=== PATIENT | female | born 1955 | race Caucasian/White ===

== ENCOUNTER 2016-05-29 15:08 | Emergency (ER) | payer BC ==
[~2016-05-29] VITALS: Ht 165.1 cm; Wt 73.9 kg
[2016-05-29] MEDS ORDERED: IPRATRPIUM/ALBUTEROL 0.5/2.5MG 3 ML NEBU. NEB ONE (15:45)
[2016-05-29] MEDS ORDERED: methylPREDNISolone SOD SUCC PF 125 MG/2 ML VIAL. IV ONE (15:45)
[2016-05-29] MEDS ORDERED: IV NORMAL SALINE 1000ML BAG 1,000 ML IV ONE (15:45)
--- NOTE | 2016-05-29 15:56 | EKG ---
[facility] [address] [place] [address] Test Date: 2016-05-29 Test Time: 15:50:39 Pat Name: LUANNE SUÁREZ Department: Room: Gender: F [employer]: : [id number] Requested By: AGATHA COON Order Number: [id number] Reading MD: Lena Bautista Measurements Intervals [place] Rate: 73 P: 47 TX: 178 QRS: 13 QRSD: 148 T: 78 QT: 438 QTc: 487 Interpretive Statements SINUS RHYTHM NON SPECIFIC INTRAVENTRICULAR BLOCK RI6.01 Unconfirmed report No previous ECG available for comparison Electronically Signed On 05-31-2016 10:58:52 CDT by Lena Bautista
[2016-05-29 15:59] LABS: BASO # 0.1 x10^3/uL (0.0-0.2); BASO % 1 % (0-3); EOS % 1 % (0-3); HEMATOCRIT 44.7 % (36.0-47.0); HEMOGLOBIN 15.1 g/dL (12.0-15.5); LYMPH # 1.5 x10^3/uL (1.0-4.8); LYMPH % 22 % (24-48); MEAN CORPUSCULAR HEMOGLOBIN 32 pg (25-35); MEAN CORPUSCULAR HGB CONC 34 g/dL (31-37); MEAN CORPUSCULAR VOLUME 95 fL (79-100); MONO % 9 % (0-9); NEUT % 68 % (31-73); PLATELET COUNT 316 x10^3/uL (140-400); RED CELL DISTRIBUTION WIDTH 12.9 % (11.5-14.5); WHITE BLOOD COUNT 6.8 x10^3/uL (4.0-11.0)
[2016-05-29 16:17] LABS: CALCIUM 9.2 mg/dL (8.5-10.1); CREATININE 0.6 mg/dL (0.6-1.0); GFR 102.3; POTASSIUM 3.1 mmol/L (3.5-5.1)
[2016-05-29 16:23] LABS: ALBUMIN 3.4 g/dL (3.4-5.0); ALBUMIN/GLOBULIN RATIO 1.1 (1.0-1.7); TOTAL PROTEIN 6.6 g/dL (6.4-8.2)
--- NOTE | 2016-05-29 16:35 | RAD ---
Chest, 2 views, 05/29/2016: History: Shortness of breath The heart size and pulmonary vascularity are normal. No pulmonary infiltrates are seen. There is no evidence of pleural fluid. IMPRESSION: No acute cardiopulmonary abnormality is detected.
[2016-05-29] MEDS ORDERED: GUAI120L35 PO (17:03)
[2016-05-29] MEDS ORDERED: PRED20TA PO (17:03)
[2016-05-29] MEDS ORDERED: PROVENTIL HFA6.7 GM IH (17:03)
--- NOTE | 2016-05-29 17:03 | PHYS DOC ---
Past Medical History Past Medical History: Hypertension, Pneumonia Additional Past Medical Histor: "some kind of heart issue" Past Surgical History: Other Additional Past Surgical Histo: hand Alcohol Use: Occasionally Drug Use: None Adult General Chief Complaint Chief Complaint: SHORTNESS OF BREATH HPI HPI 60-year-old female presents with a 2-3 week history of increased cough and congestion. She was seen at an urgent care and told that she probably had walking pneumonia and was started on antibiotics. Patient states she's really not gotten a lot better. She denies any high fever chills or sweats. Her cough is been nonproductive. She does have some sharp pain in her chest when she coughs. She denies any hemoptysis. She does continue to smoke. [] Review of Systems Review of Systems Constitutional: Denies fever or chills [] Eyes: Denies change in visual acuity, redness, or eye pain [] HENT: Denies nasal congestion or sore throat [] Respiratory: Per history of present illness [] Cardiovascular: No additional information not addressed in HPI [] GI: Denies abdominal pain, nausea, vomiting, bloody stools or diarrhea [] : Denies dysuria or hematuria [] Musculoskeletal: Denies back pain or joint pain [] Integument: Denies rash or skin lesions [] Neurologic: Denies headache, focal weakness or sensory changes [] Endocrine: Denies polyuria or polydipsia [] Current Medications Current Medications Current Medications Medications (Trade) Dose Ordered Sig/Gumaro Start Time Stop Time Status Last Admin Dose Admin Albuterol/ Ipratropium (Duoneb) 6 ml 1X ONCE 05/29/16 15:45 05/29/16 15:46 DC 05/29/16 15:54 6 ML Methylprednisolone Sodium Succinate 125 mg 125 mg 1X ONCE 05/29/16 15:45 05/29/16 15:46 DC 05/29/16 15:48 125 MG Sodium Chloride (Iv Sodium Chloride 0.9% 1000ml Bag) 1,000 ml @ 1,000 mls/hr 1X ONCE 05/29/16 15:45 05/29/16 16:44 DC 05/29/16 15:48 1,000 MLS/HR Allergies Allergies Allergies Coded Allergies Type Severity Reaction Last Updated Verified morphine Allergy Unknown 05/29/16 Yes Physical Exam Physical Exam Constitutional: Well developed, well nourished, no acute distress, non-toxic appearance. [] HENT: Normocephalic, atraumatic, bilateral external ears normal, oropharynx moist, no oral exudates, nose normal. [] Eyes: PERRLA, EOMI, conjunctiva normal, no discharge. [] Neck: Normal range of motion, no tenderness, supple, no stridor. [] Cardiovascular:Heart rate regular rhythm, no murmur [] Lungs & Thorax: Wheezes throughout both lungs no rales [] Abdomen: Bowel sounds normal, soft, no tenderness, no masses, no pulsatile masses. [] Skin: Warm, dry, no erythema, no rash. [] Back: No tenderness, no CVA tenderness. [] Extremities: No tenderness, no cyanosis, no clubbing, ROM intact, no edema. [] Neurologic: Alert and oriented X 3, normal motor function, normal sensory function, no focal deficits noted. [] Psychologic: Affect normal, judgement normal, mood normal. [] Current Patient Data Vital Signs Vital Signs Date Time Temp Pulse Resp B/P Pulse Ox O2 Delivery O2 Flow Rate FiO2 05/29/16 16:03 96 Nasal Cannula 2.0 05/29/16 15:21 98.4 82 20 161/84 98.4 Lab Values Laboratory Tests Test 05/29/16 15:45 White Blood Count 6.8x10^3/uL (4.0-11.0) Red Blood Count 4.70x10^6/uL (3.50-5.40) Hemoglobin 15.1g/dL (12.0-15.5) Hematocrit 44.7% (36.0-47.0) Mean Corpuscular Volume 95fL (79-100) Mean Corpuscular Hemoglobin 32pg (25-35) Mean Corpuscular Hemoglobin Concent 34g/dL (31-37) Red Cell Distribution Width 12.9% (11.5-14.5) Platelet Count 316x10^3/uL (140-400) Neutrophils (%) (Auto) 68% (31-73) Lymphocytes (%) (Auto) 22% (24-48) L Monocytes (%) (Auto) 9% (0-9) Eosinophils (%) (Auto) 1% (0-3) Basophils (%) (Auto) 1% (0-3) Neutrophils # (Auto) 4.6x10^3uL (1.8-7.7) Lymphocytes # (Auto) 1.5x10^3/uL (1.0-4.8) Monocytes # (Auto) 0.6x10^3/uL (0.0-1.1) Eosinophils # (Auto) 0.1x10^3/uL (0.0-0.7) Basophils # (Auto) 0.1x10^3/uL (0.0-0.2) Sodium Level 143mmol/L (136-145) Potassium Level 3.1mmol/L (3.5-5.1) L Chloride Level 97mmol/L (98-107) L Carbon Dioxide Level 42mmol/L (21-32) H Anion Gap 4 (6-14) L Blood Urea Nitrogen 8mg/dL (7-20) Creatinine 0.6mg/dL (0.6-1.0) Estimated GFR (Cockcroft-Gault) 102.3 BUN/Creatinine Ratio 13 (6-20) Glucose Level 125mg/dL (70-99) H Calcium Level 9.2mg/dL (8.5-10.1) Total Bilirubin 1.0mg/dL (0.2-1.0) Aspartate Amino Transferase (AST) 29U/L (15-37) Alanine Aminotransferase (ALT) 31U/L (14-59) Alkaline Phosphatase 56U/L (46-116) Troponin I Quantitative < 0.017ng/mL (0.000-0.055) HN-Lky-F-Type Natriuretic Peptide 149pg/mL (0-124) H Total Protein 6.6g/dL (6.4-8.2) Albumin 3.4g/dL (3.4-5.0) Albumin/Globulin Ratio 1.1 (1.0-1.7) Laboratory Tests 05/29/16 15:45 Laboratory Tests 05/29/16 15:45 EKG EKG [EKG: Normal sinus rhythm rate of 70 left bundle branch block QRS of 13. MT 178] Radiology/Procedures Radiology/Procedures [] Impressions: PROCEDURE: CHEST PA & LATERAL Chest, 2 views, 05/29/2016: History: Shortness of breath The heart size and pulmonary vascularity are normal. No pulmonary infiltrates are seen. There is no evidence of pleural fluid. IMPRESSION: No acute cardiopulmonary abnormality is detected. Course & Med Decision Making Course & Med Decision Making Pertinent Labs and Imaging studies reviewed. (See chart for details) [ED course: Evaluation reveals a 60-year-old female with likely bronchitis. She was given a couple of DuoNeb treatments as well as 125 Solu-Medrol IV which did help eliminate her symptoms. She felt much better after her treatments. We'll prescribe her steroids and Proventil inhaler to take at home. Patient stable for discharge] Dragon Disclaimer Dragon Disclaimer This electronic medical record was generated, in whole or in part, using a voice recognition dictation system. Departure Departure Impression: Primary Impression: Bronchitis Disposition: HOME, SELF-CARE Condition: STABLE Referrals: NO PCP (PCP) Patient Instructions: Acute Bronchitis Additional Instructions: Thank you for allowing us to participate in your care today. Followup with your primary care physician in 3 days if your symptoms do not improve. Return to the emergency department you have any new or concerning findings. This should be evaluated by the primary care physician and any necessary consulting services for continued management within a few days after discharge. Return to emergency room if you have any new or concerning symptoms including but not limited to fever, chills, nausea, vomiting, intractable pain, any new rashes, chest pain, shortness of air, uncontrolled bleeding, difficulty breathing, and/or vision loss. You may have been prescribed medication that can change in your level of thinking and ability to operate machinery. These medications include hydrocodone and Ativan. Also, Benadryl has been known to do this as well. Be sure to check with your pharmacist and ask if the medications you've prescribed can affect your level of consciousness. I recommend not operating heavy machinery or driving while on medication such as these. Scripts Albuterol Sulfate (Proventil Hfa Inhaler)6.7 Gm Hfa.[id number].[id number] Puff IH PRN Q4HRS PRN asthma #1 INHALER NS Prov:AGATHA COON DO 05/29/16 Prednisone 20 Mg Tablet2 Tab PO DAILY PRN COUGH #14 TAB Prov:AGATHA COON DO 05/29/16 Guaifenesin/Codeine Phosphate (Codeine-Guaifen 10-100 mg/5 ml)120 Ml [id number] Ml PO Q8HRS COUGH #120 LIQUID Prov:AGATHA COON DO 05/29/16 AGATHA COON DO May 29, 2016 17:03
[2016-05-29 17:27] VITALS: BP 156/78
== END 2016-05-29 17:28 | disposition home or self-care (01) ==
LOC: ER 15:08
DX: J40 Bronchitis, not specified as acute or chronic (principal); I10 Essential (primary) hypertension; Z88.5 Allergy status to narcotic agent; Z87.01 Personal history of pneumonia (recurrent)
CPT/HCPCS: 36415; 71020; 80053; 83880; 84484; 85027; 93005; 94250; 94640; 96361; 96374; 99285; J2930; J7030; J7620

== ENCOUNTER 2018-05-08 15:44 | Inpatient (IN) | payer BC ==
[~2018-05-08] VITALS: Ht 165.1 cm; Wt 75.8 kg
[~2018-05-08 15:44] MED LIST: ALBU2.5V8 IH; GUAI120L35 PO; PRED20TA PO
[2018-05-08] MEDS ORDERED: IPRATRPIUM/ALBUTEROL 0.5/2.5MG 3 ML NEBU. NEB ONE ×2 (16:15→16:30)
[2018-05-08] MEDS ORDERED: methylPREDNISolone SOD SUCC PF 125 MG/2 ML VIAL. IV ONE (16:30)
[2018-05-08 16:41] LABS: BASO % 1 % (0-3); EOS % 1 % (0-3); HEMOGLOBIN 15.3 g/dL (12.0-15.5); LYMPH % 24 % (24-48); MEAN CORPUSCULAR HEMOGLOBIN 32 pg (25-35); MEAN CORPUSCULAR HGB CONC 34 g/dL (31-37); MEAN CORPUSCULAR VOLUME 94 fL (79-100); MONO # 0.5 x10^3/uL (0.0-1.1); MONO % 11 % (0-9); NEUT # 2.7 x10^3uL (1.8-7.7); NEUT % 64 % (31-73); PLATELET COUNT 206 x10^3/uL (140-400); RED BLOOD COUNT 4.81 x10^6/uL (3.50-5.40); RED CELL DISTRIBUTION WIDTH 14.3 % (11.5-14.5); WHITE BLOOD COUNT 4.2 x10^3/uL (4.0-11.0)
[2018-05-08 16:55] LABS: CALCIUM 8.5 mg/dL (8.5-10.1); CREATININE 0.5 mg/dL (0.6-1.0); GFR 125.4; POTASSIUM 3.9 mmol/L (3.5-5.1)
[2018-05-08 17:07] LABS: ALBUMIN 3.1 g/dL (3.4-5.0); ALBUMIN/GLOBULIN RATIO 0.8 (1.0-1.7); TOTAL BILIRUBIN 0.7 mg/dL (0.2-1.0)
[2018-05-08 17:11] LABS: INFLUENZA A PATIENT NEGATIVE (NEGATIVE); INFLUENZA B PATIENT NEGATIVE (NEGATIVE)
--- NOTE | 2018-05-08 17:40 | RAD ---
Chest radiograph 05/08/2018 4:47 PM INDICATION: Dyspnea COMPARISON: None available TECHNIQUE: Frontal and lateral views of the chest are provided. FINDINGS: The cardiomediastinal silhouette is within normal limits. There are no pleural effusions. There is no pulmonary vascular congestion. There is no pneumothorax. Bronchial wall thickening is compatible with bronchitis. No focal airspace consolidation. No significant osseous abnormality is identified. IMPRESSION: Findings are suggestive of bronchitis without definite focal airspace consolidation. Electronically signed by: Sandy Mcconnell MD (05/08/2018 5:37 PM) [facility]
--- NOTE | 2018-05-08 17:55 | PHYS DOC ---
Past Medical History Past Medical History: CHF, COPD, Hypertension, Pneumonia Additional Past Medical Histor: "some kind of heart issue"EF 35% Past Surgical History: Other Additional Past Surgical Histo: hand Alcohol Use: Heavy Additional Information: 4-10 BEERS A DAY Drug Use: None Adult General Chief Complaint Chief Complaint: SHORTNESS OF BREATH [facility] HPI Patient is a 62-year-old female who presents with complaint of cough and shortness of breath for the last week to week and a half. Patient states that she had taken a Z-Donavon but is just not feeling any better. Patient was over at her primary care doctor's office and O2 sat was found to be 78% on room air. Patient presented to the emergency room where she was found to be at 74% placed on oxygen. Patient denies history of COPD but does admit to a long history of tobacco abuse. Patient states shortness of breath is worsened with minimal exertion. She denies any chest pain. Review of Systems Review of Systems Constitutional: Denies fever or chills [] Respiratory: Complains of cough and shortness of breath [] Cardiovascular: No additional information not addressed in HPI [] GI: Denies abdominal pain, nausea, vomiting or diarrhea [] Musculoskeletal: Denies back pain or joint pain [] Integument: Denies rash or skin lesions [] Neurologic: Denies headache, focal weakness or sensory changes [] All other systems were reviewed and found to be within normal limits, except as documented in this note. Current Medications Current Medications Current Medications Medications (Trade) Dose Ordered Sig/[facility] Start Time Stop Time Status Last Admin Dose Admin Albuterol/ Ipratropium (Duoneb) 3 ml 1X ONCE 05/08/18 16:30 05/08/18 16:31 DC 05/08/18 16:40 3 ML Methylprednisolone Sodium Succinate (SOLU-Medrol 125MG VIAL) 125 mg 1X ONCE 05/08/18 16:30 05/08/18 16:31 DC 05/08/18 16:41 125 MG Allergies Allergies Allergies Coded Allergies Type Severity Reaction Last Updated Verified morphine Allergy Unknown 05/29/16 Yes Physical Exam Physical Exam Constitutional: Well developed, well nourished, no acute distress, non-toxic appearance. [] HENT: Normocephalic, atraumatic, bilateral external ears normal, oropharynx moist, no oral exudates, nose normal. [] Eyes: PERRLA, EOMI, conjunctiva normal, no discharge. [] Neck: Normal range of motion, no tenderness, supple, no stridor. [] Cardiovascular:Heart rate regular rhythm, no murmur [] Lungs & Thorax: There are slightly diminished breath sounds noted bilaterally with fine rhonchi and inspiratory wheezes to auscultation [] Abdomen: Bowel sounds normal, soft, no tenderness. [] Skin: Warm, dry, no erythema, no rash. [] Extremities: No tenderness, no cyanosis, no clubbing, ROM intact, no edema. [] Neurologic: Alert and oriented X 3, normal motor function, normal sensory function, no focal deficits noted. [] Current Patient Data Vital Signs Vital Signs Date Time Temp Pulse Resp B/P (MAP) Pulse Ox O2 Delivery O2 Flow Rate FiO2 05/08/18 15:52 98.5 81 22 180/92 (121) 94 Room Air 4.0 98.5 Lab Values Laboratory Tests Test 05/08/18 16:30 White Blood Count 4.2 x10^3/uL (4.0-11.0) Red Blood Count 4.81 x10^6/uL (3.50-5.40) Hemoglobin 15.3 g/dL (12.0-15.5) Hematocrit 45.0 % (36.0-47.0) Mean Corpuscular Volume 94 fL (79-100) Mean Corpuscular Hemoglobin 32 pg (25-35) Mean Corpuscular Hemoglobin Concent 34 g/dL (31-37) Red Cell Distribution Width 14.3 % (11.5-14.5) Platelet Count 206 x10^3/uL (140-400) Neutrophils (%) (Auto) 64 % (31-73) Lymphocytes (%) (Auto) 24 % (24-48) Monocytes (%) (Auto) 11 % (0-9) H Eosinophils (%) (Auto) 1 % (0-3) Basophils (%) (Auto) 1 % (0-3) Neutrophils # (Auto) 2.7 x10^3uL (1.8-7.7) Lymphocytes # (Auto) 1.0 x10^3/uL (1.0-4.8) Monocytes # (Auto) 0.5 x10^3/uL (0.0-1.1) Eosinophils # (Auto) 0.0 x10^3/uL (0.0-0.7) Basophils # (Auto) 0.0 x10^3/uL (0.0-0.2) D-Dimer (Sujata) 0.89 ug/mlFEU (0.00-0.50) H Sodium Level 136 mmol/L (136-145) Potassium Level 3.9 mmol/L (3.5-5.1) Chloride Level 96 mmol/L (98-107) L Carbon Dioxide Level 34 mmol/L (21-32) H Anion Gap 6 (6-14) Blood Urea Nitrogen 5 mg/dL (7-20) L Creatinine 0.5 mg/dL (0.6-1.0) L Estimated GFR (Cockcroft-Gault) 125.4 BUN/Creatinine Ratio 10 (6-20) Glucose Level 116 mg/dL (70-99) H Lactic Acid Level 0.7 mmol/L (0.4-2.0) Calcium Level 8.5 mg/dL (8.5-10.1) Total Bilirubin 0.7 mg/dL (0.2-1.0) Aspartate Amino Transferase (AST) 35 U/L (15-37) Alanine Aminotransferase (ALT) 52 U/L (14-59) Alkaline Phosphatase 78 U/L (46-116) NS-Slu-U-Type Natriuretic Peptide 1112 pg/mL (0-124) H Total Protein 7.0 g/dL (6.4-8.2) Albumin 3.1 g/dL (3.4-5.0) L Albumin/Globulin Ratio 0.8 (1.0-1.7) L Influenza Type A Antigen Negative (NEGATIVE) Influenza Type B Antigen Negative (NEGATIVE) Laboratory Tests 05/08/18 16:30 Laboratory Tests 05/08/18 16:30 EKG EKG [] Interpretation Time: EKG demonstrates normal sinus rhythm with rate of 76. There is nonspecific intraventricular conduction delay. Radiology/Procedures Radiology/Procedures [] Impressions: PROCEDURE: CHEST PA & LATERAL Chest radiograph 05/08/2018 4:47 PM INDICATION: Dyspnea COMPARISON: None available TECHNIQUE: Frontal and lateral views of the chest are provided. FINDINGS: The cardiomediastinal silhouette is within normal limits. There are no pleural effusions. There is no pulmonary vascular congestion. There is no pneumothorax. Bronchial wall thickening is compatible with bronchitis. No focal airspace consolidation. No significant osseous abnormality is identified. IMPRESSION: Findings are suggestive of bronchitis without definite focal airspace consolidation. Electronically signed by: Sandy Mcconnell MD (05/08/2018 5:37 PM) Course & Med Decision Making Course & Med Decision Making Pertinent Labs and Imaging studies reviewed. (See chart for details) [] Dragon Disclaimer Dragon Disclaimer This electronic medical record was generated, in whole or in part, using a voice recognition dictation system. Departure Departure Impression: Primary Impression: COPD with acute exacerbation Additional Impressions: Hypoxemia Acute bronchitis Disposition: ADMITTED INPATIENT Admitting Physician: Other (Dr. Martínez) Condition: IMPROVED Referrals: NO PCP (PCP) Problem Qualifiers Additional Impressions: Acute bronchitis Bronchitis organism: unspecified organism Qualified Codes: J20.9 - Acute bronchitis, unspecified RASHI LUI Jr. DO May 08, 2018 17:55
[2018-05-08] MEDS ORDERED: ACETAMINOPHEN 325 MG TABLET. PO PRN (19:00)
[2018-05-08] MEDS ORDERED: cefTRIAXone IV Push 1 GM VIAL. IVP ONE (19:00)
[2018-05-08] MEDS ORDERED: AZITHROMYCIN 250 MG TABLET. PO ONE (19:00)
[2018-05-08] MEDS: IV NORMAL SALINE 1000ML BAG 1,000 ML IV SCH (20:05)
--- NOTE | 2018-05-08 20:10 | NUR ---
ADMISSION NOTE: Patient arrived to room 526 at approximately 2004 via wheelchair accompanied by ED staff and spouse. Tele monitor applied, bed low, locked, call light within reach. Patient has no complaints at this time. Will complete admission questionnaire. Will continue to monitor.
[2018-05-08 20:14] VITALS: BP 158/74
[2018-05-08] MEDS ORDERED: LISI10TA2 PO (20:39)
[2018-05-08] MEDS ORDERED: CARV12.53 PO (20:39)
[2018-05-08] MEDS ORDERED: SODI1TAB11 PO (20:39)
[2018-05-08] MEDS ORDERED: DOXY25TA36 PO (20:39)
--- NOTE | 2018-05-08 20:41 | PDOC1 ---
History and Physical Date of Admission Date of Admission DATE: 05/08/18 TIME: 20:41 Identification/Chief Complaint Chief Complaint Shortness of breath Source Source: Patient History of Present Illness History of Present Illness 62-year-old female w/ PMHx HTN, ?asthma, smoker, ETOH abuse, systolic CHF EF35% , insomnia who presents with complaint of cough and shortness of breath for the last week to week and a half. Patient states that she had taken a Z-Donavon from her PCP but is just not feeling any better. Patient was over at her primary care doctor's office and O2 sat was found to be 78% on room air. Patient presented to the emergency room where she was found to be at 74% placed on oxygen with CXR consistent with bronchitis. Patient denies history of COPD but does admit to a long history of tobacco abuse. Patient states shortness of breath is worsened with minimal exertion. She denies any chest pain. She admits to smoking 1ppd for over 30 years and drinking 4-10 [place] [employer] beers nightly since she was 29 years old. Never admitted for ETOH withdrawal. 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 Is very pleasant on examination and during history taking. Past Medical History Cardiovascular: HTN Pulmonary: Asthma, COPD GI: No pertinent hx Heme/Onc: No pertinent hx Hepatobiliary: No pertinent hx Psych: No pertinent hx Rheumatologic: No pertinent hx Infectious disease: No pertinent hx ENT: No pertinent hx Renal/: No pertinent hx Endocrine: No pertinent hx Dermatology: No pertinent hx Past Surgical History Past Surgical History: No pertinent history Family History Family History: Hypertension Social History Smoke: 1 pack per day ALCOHOL: heavy (4-10 [place] [employer] nightly) Drugs: None Current Problem List Problem List Problems Medical Problems: (1) Acute bronchitis Status: Acute (2) COPD with acute exacerbation Status: Acute (3) Hypoxemia Status: Acute Current Medications Current Medications Current Medications Albuterol/ Ipratropium (Duoneb) 3 ml 1X ONCE NEB Last administered on at 16:33; Start 05/08/18 at 16:15; Stop 05/08/18 at 16:16; Status DC Albuterol/ Ipratropium (Duoneb) 3 ml 1X ONCE NEB Last administered on at 16:40; Start 05/08/18 at 16:30; Stop 05/08/18 at 16:31; Status DC Methylprednisolone Sodium Succinate (SOLU-Medrol 125MG VIAL) 125 mg 1X ONCE IV Last administered on 05/08/18at 16:41; Start 05/08/18 at 16:30; Stop 05/08/18 at 16:31; Status DC Ceftriaxone Sodium (Rocephin) 1 gm 1X ONCE IVP Last administered on 05/08/18at 19:05; Start 05/08/18 at 19:00; Stop 05/08/18 at 19:01; Status DC Azithromycin (Zithromax) 500 mg 1X ONCE PO Last administered on 05/08/18at 19: 04; Start 05/08/18 at 19:00; Stop 05/08/18 at 19:01; Status DC Sodium Chloride 1,000 ml @ 100 mls/hr Q10H IV ; Start 05/08/18 at 18:51; Stop 05/09/18 at 18:50 Acetaminophen (Tylenol) 650 mg PRN Q4HRS PRN PO FEVER; Start 05/08/18 at 19:00 ; Stop 05/09/18 at 18:59 Albuterol/ Ipratropium (Duoneb) 3 ml RTQID NEB ; Start 05/08/18 at 20:00; Stop 05/09/18 at 19:59 Active Scripts Active Proventil Hfa Inhaler (Albuterol Sulfate) 6.7 Gm Hfa.aer.ad 1 Puff IH PRN Q4HRS PRN Reported Nighttime Sleep-Aid (Doxylamine Succinate) 25 Mg Tablet 25 Mg PO QHS [place] Heartburn Tab Eff (Sodium Bicarbonate/Sodium Cit) 1 Each Tablet.eff 1 Each PO DAILY08 Lisinopril 10 Mg Tablet 1 Tab PO DAILYWLUN Carvedilol 12.5 Mg Tablet 12.5 Mg PO BIDAC Allergies Allergies: Coded Allergies: morphine (Verified Allergy, Unknown, 05/29/16) ROS General: YES: Fatigue, Malaise; No: Chills, Night Sweats, Appetite, Other PSYCHOLOGICAL ROS: No: Anxiety, Behavioral Disorder, Concentration difficultie , Decreased libido, Depression, Disorientation, Hallucinations, Hostility, Irritablity, Memory difficulties, Mood Swings, Obsessive thoughts, Physical abuse, Sexual abuse, Sleep disturbances, Suicidal ideation, Other Eyes: No Blurry vision, No Decreased vision, No Double vision, No Dry eyes, No Excessive tearing, No Eye Pain, No Itchy Eyes, No Loss of vision, No Photophobia , No Scotomata, No Uses contacts, No Uses glasses, No Other HEENT: No: Heacaches, Visual Changes, Hearing change, Nasal congestion, Nasal discharge, Oral lesions, Sinus pain, Sore Throat, Epistaxis, Sneezing, Snoring, Tinnitus, Vertigo, Vocal changes, Other ALLERGY AND IMMUNOLOGY: No: Hives, Insect Bite Sensitivity, Itchy/Watery Eyes, Nasal Congestion, Post Nasal Drip, Seasonal Allergies, Other Hematological and Lymphatic: No: Bleeding Problems, Blood Clots, Blood Transfusions, Brusing, Night Sweats, Pallor, Swollen Lymph Nodes, Other ENDOCRINE: No: Breast Changes, Galactorrhea, Hair Pattern Changes, Hot Flashes , Malaise/lethargy, Mood Swings, Palpitations, Polydipsia/polyuria, Skin Changes , Temperature Intolerance, Unexpected Weight Changes, Other Breast: No New/Changing Breast Lumps, No Nipple changes, No Nipple discharge, No Other Respiratory: YES: Cough, Shortness of breath, Tachypnea, Wheezing; No: Hemoptysis, Orthopnea, Pleuritic Pain, SOB with excertion, Sputum Changes , Stridor, Other Cardiovascular: No Chest Pain, No Palpitations, No Orthopnea, No Paroxysmal Noc. Dyspnea, No Edema, No Lt Headedness, No Other Gastrointestinal: No Nausea, No Vomiting, No Abdominal Pain, No Diarrhea, No Constipation, No Melena, No Hematochezia, No Other Genitourinary: No Dysuria, No Frequency, No Incontinence, No Hematuria, No Retention, No Discharge, No Urgency, No Pain, No Flank Pain, No Other, No , No , No , No , No , No , No Musculoskeletal: No Gait Disturbance, No Joint Pain, No Joint Stiffness, No Joint Swelling, No Muscle Pain, No Muscular Weakness, No Pain In:, No Swelling In:, No Other Neurological: No Behavorial Changes, No Bowel/Bladder ControlChng, No Confusion , No Dizziness, No Gait Disturbance, No Headaches, No Impaired Coord/balance, No Memory Loss, No Numbness/Tingling, No Seizures, No Speech Problems, No Tremors, No Visual Changes, No Weakness, No Other Skin: No Dry Skin, No Eczema, No Hair Changes, No Lumps, No Mole Changes, No Mottling, No Nail Changes, No Pruritus, No Rash, No Skin Lesion Changes, No Other, No Acne Physical Exam General: Alert, Oriented X3, Cooperative, No acute distress HEENT: Atraumatic, PERRLA, EOMI, Mucous membr. moist/pink Lungs: Other (Diffuse wheezing, prolonged expiratory phase) Heart: S1S2, RRR, no gallops, no murmurs Abdomen: Normal bowel sounds, Soft, No tenderness, No hepatosplenomegaly, No masses Rectal Exam: not examined Extremities: No clubbing, No cyanosis, No edema, Normal pulses, No tenderness/ swelling Skin: No rashes, No breakdown, No significant lesion Neuro: Normal gait, Normal speech, Strength at 5/5 X4 ext, Normal tone, Sensation intact, Cranial nerves 3-12 NL, Reflexes 2+ Psych/Mental Status: Mental status NL, Mood NL Vitals Vitals Vital Signs Date Time Temp Pulse Resp B/P (MAP) Pulse Ox O2 Delivery O2 Flow Rate FiO2 05/08/18 20:14 98.7 74 20 158/74 (102) 90 Nasal Cannula 98.7 05/08/18 19:37 3.0 Labs Labs Laboratory Tests Test 05/08/18 16:30 White Blood Count 4.2 x10^3/uL (4.0-11.0) Red Blood Count 4.81 x10^6/uL (3.50-5.40) Hemoglobin 15.3 g/dL (12.0-15.5) Hematocrit 45.0 % (36.0-47.0) Mean Corpuscular Volume 94 fL (79-100) Mean Corpuscular Hemoglobin 32 pg (25-35) Mean Corpuscular Hemoglobin Concent 34 g/dL (31-37) Red Cell Distribution Width 14.3 % (11.5-14.5) Platelet Count 206 x10^3/uL (140-400) Neutrophils (%) (Auto) 64 % (31-73) Lymphocytes (%) (Auto) 24 % (24-48) Monocytes (%) (Auto) 11 % (0-9) Eosinophils (%) (Auto) 1 % (0-3) Basophils (%) (Auto) 1 % (0-3) Neutrophils # (Auto) 2.7 x10^3uL (1.8-7.7) Lymphocytes # (Auto) 1.0 x10^3/uL (1.0-4.8) Monocytes # (Auto) 0.5 x10^3/uL (0.0-1.1) Eosinophils # (Auto) 0.0 x10^3/uL (0.0-0.7) Basophils # (Auto) 0.0 x10^3/uL (0.0-0.2) D-Dimer (Sujata) 0.89 ug/mlFEU (0.00-0.50) Sodium Level 136 mmol/L (136-145) Potassium Level 3.9 mmol/L (3.5-5.1) Chloride Level 96 mmol/L (98-107) Carbon Dioxide Level 34 mmol/L (21-32) Anion Gap 6 (6-14) Blood Urea Nitrogen 5 mg/dL (7-20) Creatinine 0.5 mg/dL (0.6-1.0) Estimated GFR (Cockcroft-Gault) 125.4 BUN/Creatinine Ratio 10 (6-20) Glucose Level 116 mg/dL (70-99) Lactic Acid Level 0.7 mmol/L (0.4-2.0) Calcium Level 8.5 mg/dL (8.5-10.1) Total Bilirubin 0.7 mg/dL (0.2-1.0) Aspartate Amino Transf (AST/SGOT) 35 U/L (15-37) Alanine Aminotransferase (ALT/SGPT) 52 U/L (14-59) Alkaline Phosphatase 78 U/L (46-116) DD-Yoh-E-Type Natriuretic Peptide 1112 pg/mL (0-124) Total Protein 7.0 g/dL (6.4-8.2) Albumin 3.1 g/dL (3.4-5.0) Albumin/Globulin Ratio 0.8 (1.0-1.7) Influenza Type A Antigen Negative (NEGATIVE) Influenza Type B Antigen Negative (NEGATIVE) Laboratory Tests Test 05/08/18 16:30 White Blood Count 4.2 x10^3/uL (4.0-11.0) Red Blood Count 4.81 x10^6/uL (3.50-5.40) Hemoglobin 15.3 g/dL (12.0-15.5) Hematocrit 45.0 % (36.0-47.0) Mean Corpuscular Volume 94 fL (79-100) Mean Corpuscular Hemoglobin 32 pg (25-35) Mean Corpuscular Hemoglobin Concent 34 g/dL (31-37) Red Cell Distribution Width 14.3 % (11.5-14.5) Platelet Count 206 x10^3/uL (140-400) Neutrophils (%) (Auto) 64 % (31-73) Lymphocytes (%) (Auto) 24 % (24-48) Monocytes (%) (Auto) 11 % (0-9) Eosinophils (%) (Auto) 1 % (0-3) Basophils (%) (Auto) 1 % (0-3) Neutrophils # (Auto) 2.7 x10^3uL (1.8-7.7) Lymphocytes # (Auto) 1.0 x10^3/uL (1.0-4.8) Monocytes # (Auto) 0.5 x10^3/uL (0.0-1.1) Eosinophils # (Auto) 0.0 x10^3/uL (0.0-0.7) Basophils # (Auto) 0.0 x10^3/uL (0.0-0.2) D-Dimer (Sujata) 0.89 ug/mlFEU (0.00-0.50) Sodium Level 136 mmol/L (136-145) Potassium Level 3.9 mmol/L (3.5-5.1) Chloride Level 96 mmol/L (98-107) Carbon Dioxide Level 34 mmol/L (21-32) Anion Gap 6 (6-14) Blood Urea Nitrogen 5 mg/dL (7-20) Creatinine 0.5 mg/dL (0.6-1.0) Estimated GFR (Cockcroft-Gault) 125.4 BUN/Creatinine Ratio 10 (6-20) Glucose Level 116 mg/dL (70-99) Lactic Acid Level 0.7 mmol/L (0.4-2.0) Calcium Level 8.5 mg/dL (8.5-10.1) Total Bilirubin 0.7 mg/dL (0.2-1.0) Aspartate Amino Transf (AST/SGOT) 35 U/L (15-37) Alanine Aminotransferase (ALT/SGPT) 52 U/L (14-59) Alkaline Phosphatase 78 U/L (46-116) HR-Nzz-Z-Type Natriuretic Peptide 1112 pg/mL (0-124) Total Protein 7.0 g/dL (6.4-8.2) Albumin 3.1 g/dL (3.4-5.0) Albumin/Globulin Ratio 0.8 (1.0-1.7) Influenza Type A Antigen Negative (NEGATIVE) Influenza Type B Antigen Negative (NEGATIVE) Images Images CXR - Findings are suggestive of bronchitis without definite focal airspace consolidation. VTE Prophylaxis Ordered VTE Prophylaxis Devices: Yes VTE Pharmacological Prophylaxi: Yes Assessment/Plan Assessment/Plan A/P: Shortness of breath - likely with undiagnosed COPD this is definitely acute bronchitis. Aggressive nebs, steroids, azithromycin daily, pulmicort. Consult pulm Hypoxia - concerning for underlying structural lung disease such as COPD or even RB-ILD (Would possibly benefit from CT, should likely have low res CT anyway for lung CA screening). Low end d-dimer, but negative for chest pain and not tach did not perform CTPA. Will wean O2 as tolerated HTN - cont lisinopril. PRN labetalol ETOH abuse - no history of withdrawal. We do not have alcohol on formulary and she does not wish for ativan, will monitor. Counseled on cutting back Smoker - nicotine patch while in house Insomnia - doxylamine ok Systolic CHF EF35% - with elevated BNP this is also likely an acute CHF exacerbation, will diurese, get repeat echo and consult cardiology. FEN - General diet PPX - Lovenox FULL CODE Inpatient for acute bronchitis with hypoxia, will need likely 2 midnights inpatient for care. KAROL NELSON MD May 08, 2018 20:41
[2018-05-08] MEDS: IPRATRPIUM/ALBUTEROL 0.5/2.5MG 3 ML NEBU. NEB SCH (21:32)
[2018-05-08] MEDS ORDERED: ALBUTEROL SULFATE 2.5 MG/3 ML NEBU. NEB PRN (22:30)
[2018-05-08] MEDS: DOXYLAMINE SUCCINATE 25 MG TABLET PO SCH (22:43)
[2018-05-08] MEDS: MONTELUKAST SODIUM 10 MG TABLET. PO SCH (22:43)
[2018-05-08 23:05] VITALS: BP 163/81
[2018-05-08] MEDS: BUDESONIDE 0.5 MG/2 ML NEBU. NEB SCH (23:07)
[2018-05-09] MEDS ORDERED: LABETALOL 20 MG/4 ML DISP.SYRIN. IVP PRN (01:45)
[2018-05-09 03:06] VITALS: BP 136/60
[2018-05-09] MEDS: IV NORMAL SALINE 1000ML BAG 1,000 ML IV SCH ×2 (04:51→14:51)
[2018-05-09 07:00] VITALS: BP 146/73
[2018-05-09] MEDS: BUDESONIDE 0.5 MG/2 ML NEBU. NEB SCH ×2 (07:44→19:34)
[2018-05-09] MEDS: IPRATRPIUM/ALBUTEROL 0.5/2.5MG 3 ML NEBU. NEB SCH ×4 (07:44→19:34)
[2018-05-09] MEDS ORDERED: [UNRECOGNIZED DRUG - OTHER] PO SCH (08:00)
[2018-05-09] MEDS ORDERED: SODIUM BICARBONATE PO SCH (08:00)
--- NOTE | 2018-05-09 08:38 | EKG ---
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
[2018-05-09] MEDS: methylPREDNISolone SOD SUCC PF 40 MG/ML VIAL. IV SCH ×2 (09:31→20:38)
[2018-05-09] MEDS: CARVEDILOL 12.5 MG TABLET. PO SCH ×2 (09:31→16:30)
[2018-05-09] MEDS: AZITHROMYCIN 500 MG in IV NORMAL SALINE 250ML 250 ML IV SCH (09:33)
--- NOTE | 2018-05-09 09:34 | PDOC2 ---
CARDIAC CONSULT DATE OF CONSULT Date of Consult DATE: 05/09/18 TIME: 09:31 REASON FOR CONSULT Reason for Consult: Heart failure REFERRING PHYSICIAN Referring Physician: Dr. Martínez SOURCE Source: Chart review, Patient HISTORY OF PRESENT ILLNESS HISTORY OF PRESENT ILLNESS This is a 62 yo female with a history of COPD and tobaccoism, who presented secondary to cough and shortness of breath for the last week. Patient reports being seen by PCP last week. Was place on antibiotic therapy due to bronchitis. BP was mildly elevated at this visit. Went back yesterday for blood pressure check. SBP 160 range. Oxygen saturation was noted in the low 70's on RA. PCP referred her to the ED for further evaluation and treatment. Patient denies any dizziness, diaphoresis, palpitations, LE edema, or PND. No previous h/o CAD. Does report being treated for CHF in 2006. Was previously on low-dose lasix, but was taken off a couple of months ago as her provider told her she didn't need it any more. PAST MEDICAL HISTORY Cardiovascular: CHF, HTN Pulmonary: COPD, Pneumonia CENTRAL NERVOUS SYSTEM: Other (no pertinet hx) GI: GERD Heme/Onc: No pertinent hx Hepatobiliary: No pertinent hx Psych: No pertinent hx Musculoskeletal: Osteoarthritis Rheumatologic: No pertinent hx Infectious disease: No pertinent hx ENT: No pertinent hx Renal/: No pertinent hx Endocrine: No pertinent hx Dermatology: No pertinent hx PAST SURGICAL HISTORY Past Surgical History: No pertinent history FAMILY HISTORY Family History: Heart Disease (father ) SOCIAL HISTORY Smoke: 1 pack per day ALCOHOL: other (6 beers per day) Drugs: None Lives: with Family CURRENT MEDICATIONS CURRENT MEDICATIONS Current Medications Medications (Trade) Dose Ordered Sig/Gumaro Route PRN Reason Start Time Stop Time Status Last Admin Dose Admin Albuterol/ Ipratropium (Duoneb) 3 ml 1X ONCE NEB 05/08/18 16:15 05/08/18 16:16 DC 05/08/18 16:33 Albuterol/ Ipratropium (Duoneb) 3 ml 1X ONCE NEB 05/08/18 16:30 05/08/18 16:31 DC 05/08/18 16:40 Methylprednisolone Sodium Succinate (SOLU-Medrol 125MG VIAL) 125 mg 1X ONCE IV 05/08/18 16:30 05/08/18 16:31 DC 05/08/18 16:41 Ceftriaxone Sodium (Rocephin) 1 gm 1X ONCE IVP 05/08/18 19:00 05/08/18 19:01 DC 05/08/18 19:05 Azithromycin (Zithromax) 500 mg 1X ONCE PO 05/08/18 19:00 05/08/18 19:01 DC 05/08/18 19:04 Albuterol/ Ipratropium (Duoneb) 3 ml RTQID NEB 05/08/18 20:00 05/09/18 19:59 05/09/18 07:44 Doxylamine Succinate (Unisom) 25 mg QHS PO 05/08/18 22:30 05/08/18 22:43 Budesonide (Pulmicort) 0.5 mg RTBID NEB 05/08/18 22:30 05/09/18 07:44 Montelukast Sodium (Singulair) 10 mg QHS PO 05/08/18 22:30 05/08/18 22:43 ALLERGIES ALLERGIES: Coded Allergies: morphine (Verified Allergy, Unknown, 05/29/16) ROS Review of System 14 point ROS conducted with pertinent positives noted above in HPI. PHYSICAL EXAM General: Alert, Oriented X3, Cooperative, No acute distress HEENT: Atraumatic, Mucous membr. moist/pink Lungs: Other (diffuse wheezing, diminished overall) Heart: Regular rate, Normal S1, Normal S2 Abdomen: Soft, No tenderness Extremities: No edema, Normal pulses Skin: No breakdown, No significant lesion Neuro: Normal speech, Sensation intact VITALS VITALS Vital Signs Date Time Temp Pulse Resp B/P (MAP) Pulse Ox O2 Delivery O2 Flow Rate FiO2 05/09/18 07:45 99 Nasal Cannula 3.0 05/09/18 07:00 98.6 78 17 146/73 (97) 98.6 LABS Lab: Laboratory Tests Test 05/08/18 16:30 White Blood Count 4.2 x10^3/uL (4.0-11.0) Red Blood Count 4.81 x10^6/uL (3.50-5.40) Hemoglobin 15.3 g/dL (12.0-15.5) Hematocrit 45.0 % (36.0-47.0) Mean Corpuscular Volume 94 fL (79-100) Mean Corpuscular Hemoglobin 32 pg (25-35) Mean Corpuscular Hemoglobin Concent 34 g/dL (31-37) Red Cell Distribution Width 14.3 % (11.5-14.5) Platelet Count 206 x10^3/uL (140-400) Neutrophils (%) (Auto) 64 % (31-73) Lymphocytes (%) (Auto) 24 % (24-48) Monocytes (%) (Auto) 11 % (0-9) Eosinophils (%) (Auto) 1 % (0-3) Basophils (%) (Auto) 1 % (0-3) Neutrophils # (Auto) 2.7 x10^3uL (1.8-7.7) Lymphocytes # (Auto) 1.0 x10^3/uL (1.0-4.8) Monocytes # (Auto) 0.5 x10^3/uL (0.0-1.1) Eosinophils # (Auto) 0.0 x10^3/uL (0.0-0.7) Basophils # (Auto) 0.0 x10^3/uL (0.0-0.2) D-Dimer (Sujata) 0.89 ug/mlFEU (0.00-0.50) Sodium Level 136 mmol/L (136-145) Potassium Level 3.9 mmol/L (3.5-5.1) Chloride Level 96 mmol/L (98-107) Carbon Dioxide Level 34 mmol/L (21-32) Anion Gap 6 (6-14) Blood Urea Nitrogen 5 mg/dL (7-20) Creatinine 0.5 mg/dL (0.6-1.0) Estimated GFR (Cockcroft-Gault) 125.4 BUN/Creatinine Ratio 10 (6-20) Glucose Level 116 mg/dL (70-99) Lactic Acid Level 0.7 mmol/L (0.4-2.0) Calcium Level 8.5 mg/dL (8.5-10.1) Total Bilirubin 0.7 mg/dL (0.2-1.0) Aspartate Amino Transf (AST/SGOT) 35 U/L (15-37) Alanine Aminotransferase (ALT/SGPT) 52 U/L (14-59) Alkaline Phosphatase 78 U/L (46-116) KE-Pxx-J-Type Natriuretic Peptide 1112 pg/mL (0-124) Total Protein 7.0 g/dL (6.4-8.2) Albumin 3.1 g/dL (3.4-5.0) Albumin/Globulin Ratio 0.8 (1.0-1.7) Influenza Type A Antigen Negative (NEGATIVE) Influenza Type B Antigen Negative (NEGATIVE) ASSESSMENT/PLAN ASSESSMENT/PLAN 1. Acute on chronic respiratory failure AE COPD, bronchitis. Pulmonary consulted 2. Chronic diastolic CHF; NT Pro BNP mildly elevated, but CXR not consistent with acute CHF 3. Hypertension; better controlled 5. Tobaccoism; discussed/encouraged cessation Recommendations Obtain echo to assess LV systolic function. Check lipids- statin if indicated Discontinue IV lasix ASA Lung optimization as per pulmonary Given risk factors, consider further ischemic evaluation on an outpatient basis RUFUS HOPKINS APRN May 09, 2018 09:34
[2018-05-09] MEDS: ENOXAPARIN 40 MG/0.4 ML SYRINGE. SQ SCH (09:35)
[2018-05-09] MEDS: NICOTINE 21MG PATCH. TD SCH (09:36)
[2018-05-09 11:00] VITALS: BP 117/53
[2018-05-09] MEDS: FUROSEMIDE 40 MG/4 ML VIAL. IVP SCH ×2 (11:23→14:58)
[2018-05-09] MEDS: LISINOPRIL 10 MG TABLET PO SCH (12:00)
--- NOTE | 2018-05-09 12:17 | CONS ---
DATE OF CONSULTATION: PULMONARY CONSULTATION ATTENDING PHYSICIAN: Kiet Martínez MD. REASON FOR CONSULTATION: Dyspnea. HISTORY OF PRESENT ILLNESS: The patient is a 62-year-old female who has a history of tobacco use for 40 years and continues to smoke a pack a day. The patient presented to the hospital with a complaint of shortness of breath. She said she had a cough about a week ago, which was nonproductive, but got better. Her states she has shortness of breath with any activity. She is normally not on oxygen. No chest pains. No fever, no chills. She was noted to be hypoxic at her primary care office with saturation of 78% on room air. She is currently now requiring oxygen. No headaches, no nausea or vomiting, no diarrhea. No dysuria. No focal weakness. I have reviewed the patient's chest x-ray. It was reported as clear. There may be faint atelectasis in the left base. PAST MEDICAL HISTORY: Significant for COPD, unknown severity, could be severe and hypertension. PAST SURGICAL HISTORY: None. FAMILY HISTORY: Hypertension. SOCIAL HISTORY: One pack per day for 40 years and history of alcohol use. ALLERGIES: MORPHINE. CURRENT MEDICATIONS: Reviewed as listed in the MRAD including antibiotics, IV steroids and bronchodilators. REVIEW OF SYSTEMS: Twelve-point system obtained. Pertinent positives discussed in my history of present illness, otherwise noncontributory. All systems that were negative were reviewed as well. SOCIAL HISTORY: Smoker for 40 years, 1 pack per day and still smokes. PHYSICAL EXAMINATION: VITAL SIGNS: Reviewed. Pulse ox 94% on 2 liters, afebrile. HEENT: Sclerae nonicteric. NECK: Supple. LUNGS: With bilateral faint expiratory wheezes. CARDIOVASCULAR: Regular rate and rhythm. ABDOMEN: Soft, obese. EXTREMITIES: With no pitting edema. LABORATORY DATA: Reviewed. Influenza screen negative. BUN and creatinine 5 and 0.5. White cell count 4.2. D-dimer 0.89. IMPRESSION: 1. Dyspnea with acute hypoxic respiratory failure secondary to acute exacerbation of chronic obstructive pulmonary disease and recent acute bronchitis. 2. Chronic dyspnea with minimal activity, suspect secondary to severe chronic obstructive pulmonary disease with an unknown FEV1. 3. Abnormal D-dimer, this is a nonspecific finding. No suspicion for thromboembolic disease and as such, no further workup is required. 4. Acute bronchitis, likely viral. 5. No definite consolidation seen on the chest x-ray. 6. Cardiomyopathy with an ejection fraction of 35%. RECOMMENDATIONS: 1. Continue with present oxygen with gradual wean, keep saturation 92% and above. 2. Continue bronchodilators. 3. Smoking cessation counseling provided. 4. We will do spirometry while in the hospital. 5. Continue antibiotics. 6. IV steroid taper. 7. If bronchospasm does not improve, then consider holding Coreg. 8. The patient may need home oxygen and will do a 6-minute walk test at the time of discharge. GABINO BAILEY MD DR: JOHN/zechariah JOB#: [id number] / [id number]
--- NOTE | 2018-05-09 12:17 | PDOC ---
PROGRESS NOTES Chief Complaint Chief Complaint Shortness of breath - acute bronchitis with undiagnosed COPD . acute acute Hypoxia - on 02, wean as able - will get 6 min walk tomorroow. HTN - cont lisinopril. PRN labetalol ETOH abuse - no history of withdrawal. 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 Consult pulm tobacco cessation counseling > 3 min echo today wean 02 she reports feeling much imrpoved already Vitals Vitals Vital Signs Date Time Temp Pulse Resp B/P (MAP) Pulse Ox O2 Delivery O2 Flow Rate FiO2 05/09/18 12:00 81 117/53 05/09/18 11:15 94 Nasal Cannula 2.0 05/09/18 11:00 97.7 18 97.7 Physical Exam General: Alert, Oriented X3, Cooperative, No acute distress Heart: Regular rate, No murmurs Lungs: Other (rales, poor vol for age) Abdomen: Normal bowel sounds, Soft, No tenderness, No hepatosplenomegaly, No masses Extremities: No clubbing, No cyanosis, No edema, Normal pulses, No tenderness/ swelling Skin: No rashes, No breakdown, No significant lesion Labs LABS Laboratory Tests Test 05/08/18 16:30 White Blood Count 4.2 x10^3/uL (4.0-11.0) Red Blood Count 4.81 x10^6/uL (3.50-5.40) Hemoglobin 15.3 g/dL (12.0-15.5) Hematocrit 45.0 % (36.0-47.0) Mean Corpuscular Volume 94 fL (79-100) Mean Corpuscular Hemoglobin 32 pg (25-35) Mean Corpuscular Hemoglobin Concent 34 g/dL (31-37) Red Cell Distribution Width 14.3 % (11.5-14.5) Platelet Count 206 x10^3/uL (140-400) Neutrophils (%) (Auto) 64 % (31-73) Lymphocytes (%) (Auto) 24 % (24-48) Monocytes (%) (Auto) 11 % (0-9) Eosinophils (%) (Auto) 1 % (0-3) Basophils (%) (Auto) 1 % (0-3) Neutrophils # (Auto) 2.7 x10^3uL (1.8-7.7) Lymphocytes # (Auto) 1.0 x10^3/uL (1.0-4.8) Monocytes # (Auto) 0.5 x10^3/uL (0.0-1.1) Eosinophils # (Auto) 0.0 x10^3/uL (0.0-0.7) Basophils # (Auto) 0.0 x10^3/uL (0.0-0.2) D-Dimer (Sujata) 0.89 ug/mlFEU (0.00-0.50) Sodium Level 136 mmol/L (136-145) Potassium Level 3.9 mmol/L (3.5-5.1) Chloride Level 96 mmol/L (98-107) Carbon Dioxide Level 34 mmol/L (21-32) Anion Gap 6 (6-14) Blood Urea Nitrogen 5 mg/dL (7-20) Creatinine 0.5 mg/dL (0.6-1.0) Estimated GFR (Cockcroft-Gault) 125.4 BUN/Creatinine Ratio 10 (6-20) Glucose Level 116 mg/dL (70-99) Lactic Acid Level 0.7 mmol/L (0.4-2.0) Calcium Level 8.5 mg/dL (8.5-10.1) Total Bilirubin 0.7 mg/dL (0.2-1.0) Aspartate Amino Transf (AST/SGOT) 35 U/L (15-37) Alanine Aminotransferase (ALT/SGPT) 52 U/L (14-59) Alkaline Phosphatase 78 U/L (46-116) IW-Dic-V-Type Natriuretic Peptide 1112 pg/mL (0-124) Total Protein 7.0 g/dL (6.4-8.2) Albumin 3.1 g/dL (3.4-5.0) Albumin/Globulin Ratio 0.8 (1.0-1.7) Influenza Type A Antigen Negative (NEGATIVE) Influenza Type B Antigen Negative (NEGATIVE) Assessment and Plan Assessmemt and Plan Problems Medical Problems: (1) Acute bronchitis Status: Acute (2) COPD with acute exacerbation Status: Acute (3) Hypoxemia Status: Acute Comment Review of Relevant I have reviewed the following items erich (where applicable) has been applied. Labs Laboratory Tests Test 05/08/18 16:30 White Blood Count 4.2 x10^3/uL (4.0-11.0) Red Blood Count 4.81 x10^6/uL (3.50-5.40) Hemoglobin 15.3 g/dL (12.0-15.5) Hematocrit 45.0 % (36.0-47.0) Mean Corpuscular Volume 94 fL (79-100) Mean Corpuscular Hemoglobin 32 pg (25-35) Mean Corpuscular Hemoglobin Concent 34 g/dL (31-37) Red Cell Distribution Width 14.3 % (11.5-14.5) Platelet Count 206 x10^3/uL (140-400) Neutrophils (%) (Auto) 64 % (31-73) Lymphocytes (%) (Auto) 24 % (24-48) Monocytes (%) (Auto) 11 % (0-9) Eosinophils (%) (Auto) 1 % (0-3) Basophils (%) (Auto) 1 % (0-3) Neutrophils # (Auto) 2.7 x10^3uL (1.8-7.7) Lymphocytes # (Auto) 1.0 x10^3/uL (1.0-4.8) Monocytes # (Auto) 0.5 x10^3/uL (0.0-1.1) Eosinophils # (Auto) 0.0 x10^3/uL (0.0-0.7) Basophils # (Auto) 0.0 x10^3/uL (0.0-0.2) D-Dimer (Sujata) 0.89 ug/mlFEU (0.00-0.50) Sodium Level 136 mmol/L (136-145) Potassium Level 3.9 mmol/L (3.5-5.1) Chloride Level 96 mmol/L (98-107) Carbon Dioxide Level 34 mmol/L (21-32) Anion Gap 6 (6-14) Blood Urea Nitrogen 5 mg/dL (7-20) Creatinine 0.5 mg/dL (0.6-1.0) Estimated GFR (Cockcroft-Gault) 125.4 BUN/Creatinine Ratio 10 (6-20) Glucose Level 116 mg/dL (70-99) Lactic Acid Level 0.7 mmol/L (0.4-2.0) Calcium Level 8.5 mg/dL (8.5-10.1) Total Bilirubin 0.7 mg/dL (0.2-1.0) Aspartate Amino Transf (AST/SGOT) 35 U/L (15-37) Alanine Aminotransferase (ALT/SGPT) 52 U/L (14-59) Alkaline Phosphatase 78 U/L (46-116) QR-Xlt-V-Type Natriuretic Peptide 1112 pg/mL (0-124) Total Protein 7.0 g/dL (6.4-8.2) Albumin 3.1 g/dL (3.4-5.0) Albumin/Globulin Ratio 0.8 (1.0-1.7) Influenza Type A Antigen Negative (NEGATIVE) Influenza Type B Antigen Negative (NEGATIVE) Laboratory Tests Test 05/08/18 16:30 White Blood Count 4.2 x10^3/uL (4.0-11.0) Red Blood Count 4.81 x10^6/uL (3.50-5.40) Hemoglobin 15.3 g/dL (12.0-15.5) Hematocrit 45.0 % (36.0-47.0) Mean Corpuscular Volume 94 fL (79-100) Mean Corpuscular Hemoglobin 32 pg (25-35) Mean Corpuscular Hemoglobin Concent 34 g/dL (31-37) Red Cell Distribution Width 14.3 % (11.5-14.5) Platelet Count 206 x10^3/uL (140-400) Neutrophils (%) (Auto) 64 % (31-73) Lymphocytes (%) (Auto) 24 % (24-48) Monocytes (%) (Auto) 11 % (0-9) Eosinophils (%) (Auto) 1 % (0-3) Basophils (%) (Auto) 1 % (0-3) Neutrophils # (Auto) 2.7 x10^3uL (1.8-7.7) Lymphocytes # (Auto) 1.0 x10^3/uL (1.0-4.8) Monocytes # (Auto) 0.5 x10^3/uL (0.0-1.1) Eosinophils # (Auto) 0.0 x10^3/uL (0.0-0.7) Basophils # (Auto) 0.0 x10^3/uL (0.0-0.2) D-Dimer (Sujata) 0.89 ug/mlFEU (0.00-0.50) Sodium Level 136 mmol/L (136-145) Potassium Level 3.9 mmol/L (3.5-5.1) Chloride Level 96 mmol/L (98-107) Carbon Dioxide Level 34 mmol/L (21-32) Anion Gap 6 (6-14) Blood Urea Nitrogen 5 mg/dL (7-20) Creatinine 0.5 mg/dL (0.6-1.0) Estimated GFR (Cockcroft-Gault) 125.4 BUN/Creatinine Ratio 10 (6-20) Glucose Level 116 mg/dL (70-99) Lactic Acid Level 0.7 mmol/L (0.4-2.0) Calcium Level 8.5 mg/dL (8.5-10.1) Total Bilirubin 0.7 mg/dL (0.2-1.0) Aspartate Amino Transf (AST/SGOT) 35 U/L (15-37) Alanine Aminotransferase (ALT/SGPT) 52 U/L (14-59) Alkaline Phosphatase 78 U/L (46-116) NX-Aku-N-Type Natriuretic Peptide 1112 pg/mL (0-124) Total Protein 7.0 g/dL (6.4-8.2) Albumin 3.1 g/dL (3.4-5.0) Albumin/Globulin Ratio 0.8 (1.0-1.7) Influenza Type A Antigen Negative (NEGATIVE) Influenza Type B Antigen Negative (NEGATIVE) Medications Current Medications Albuterol/ Ipratropium (Duoneb) 3 ml 1X ONCE NEB Last administered on at 16:33; Start 05/08/18 at 16:15; Stop 05/08/18 at 16:16; Status DC Albuterol/ Ipratropium (Duoneb) 3 ml 1X ONCE NEB Last administered on at 16:40; Start 05/08/18 at 16:30; Stop 05/08/18 at 16:31; Status DC Methylprednisolone Sodium Succinate (SOLU-Medrol 125MG VIAL) 125 mg 1X ONCE IV Last administered on 05/08/18at 16:41; Start 05/08/18 at 16:30; Stop 05/08/18 at 16:31; Status DC Ceftriaxone Sodium (Rocephin) 1 gm 1X ONCE IVP Last administered on 05/08/18at 19:05; Start 05/08/18 at 19:00; Stop 05/08/18 at 19:01; Status DC Azithromycin (Zithromax) 500 mg 1X ONCE PO Last administered on 05/08/18at 19: 04; Start 05/08/18 at 19:00; Stop 05/08/18 at 19:01; Status DC Sodium Chloride 1,000 ml @ 100 mls/hr Q10H IV ; Start 05/08/18 at 18:51; Stop 05/09/18 at 18:50 Acetaminophen (Tylenol) 650 mg PRN Q4HRS PRN PO FEVER; Start 05/08/18 at 19:00 ; Stop 05/09/18 at 18:59 Albuterol/ Ipratropium (Duoneb) 3 ml RTQID NEB Last administered on 05/09/18at 11:15; Start 05/08/18 at 20:00; Stop 05/09/18 at 19:59 Nicotine (Nicoderm Cq 21mg) 1 patch DAILY TD Last administered on 05/09/18at 09: 36; Start 05/09/18 at 09:00 Albuterol Sulfate (Ventolin Neb Soln) 2.5 mg PRN Q4HRS PRN NEB asthma; Start at 22:30 Carvedilol (Coreg) 12.5 mg BIDAC PO Last administered on 05/09/18at 09:31; Start 05/09/18 at 07:30 Doxylamine Succinate (Unisom) 25 mg QHS PO Last administered on 05/08/18at 22:43 ; Start 05/08/18 at 22:30 Lisinopril (Prinivil) 10 mg DAILYWLUN PO ; Start 05/09/18 at 12:00 Non-Formulary Medication (Sodium Bicarbonate/ Sodium Cit ([place] Heartburn Tab Eff)) 1 each DAILY08 PO ; Start 05/09/18 at 08:00; Stop 05/09/18 at 08:00; Status DC Methylprednisolone Sodium Succinate (SOLU-Medrol 40MG VIAL) 40 mg Q12HR IV Last administered on 05/09/18at 09:31; Start 05/09/18 at 09:00 Budesonide (Pulmicort) 0.5 mg RTBID NEB Last administered on 05/09/18at 07:44; Start 05/08/18 at 22:30 Montelukast Sodium (Singulair) 10 mg QHS PO Last administered on 05/08/18at 22: 43; Start 05/08/18 at 22:30 Influenza Virus Vaccine (Afluria Trivalent 5730-5056 Syringe) 0.5 ml ONCE ONCE VAX IM Last administered on 05/09/18at 09:38; Start 05/09/18 at 09:00; Stop at 09:01; Status DC Azithromycin 500 mg/Sodium Chloride 250 ml @ 250 mls/hr Q24H IV Last administered on 05/09/18at 09:33; Start 05/09/18 at 09:00 Labetalol HCl (Normodyne Iv Push) 10 mg PRN Q2HR PRN IVP HYPERTENSION, SEE COMMENTS; Start 05/09/18 at 01:45 Enoxaparin Sodium (Lovenox 40mg Syringe) 40 mg Q24H SQ Last administered on at 09:35; Start 05/09/18 at 09:00 Furosemide (Lasix) 40 mg BID92 IVP Last administered on 05/09/18at 11:23; Start 05/09/18 at 09:30 Lactobacillus Rhamnosus (Culturelle) 1 cap BID PO ; Start 05/09/18 at 21:00 Active Scripts Active Proventil Hfa Inhaler (Albuterol Sulfate) 6.7 Gm Hfa.aer.ad 1 Puff IH PRN Q4HRS PRN Reported Nighttime Sleep-Aid (Doxylamine Succinate) 25 Mg Tablet 25 Mg PO QHS [place] Heartburn Tab Eff (Sodium Bicarbonate/Sodium Cit) 1 Each Tablet.eff 1 Each PO DAILY08 Lisinopril 10 Mg Tablet 1 Tab PO DAILYWLUN Carvedilol 12.5 Mg Tablet 12.5 Mg PO BIDAC Vitals/I & O Vital Sign - Last 24 Hours 05/08/18 05/08/18 05/08/18 05/08/18 15:52 18:07 18:37 19:37 Temp 98.5 98.5 Pulse 81 72 70 78 Resp 22 B/P (MAP) 180/92 (121) 163/79 (107) 166/95 (118) 139/75 (96) Pulse Ox 94 93 93 93 O2 Delivery Room Air Nasal Cannula Nasal Cannula Nasal Cannula O2 Flow Rate 4.0 4.0 4.0 3.0 05/08/18 05/08/18 05/08/18 05/08/18 20:05 20:14 21:36 23:05 Temp 98.7 97.3 98.7 97.3 Pulse 74 90 Resp 20 20 B/P (MAP) 158/74 (102) 163/81 (108) Pulse Ox 90 94 93 O2 Delivery Nasal Cannula Nasal Cannula Nasal Cannula Nasal Cannula O2 Flow Rate 3.0 3.0 05/08/18 05/09/18 05/09/18 05/09/18 23:08 03:06 07:00 07:45 Temp 97.9 98.6 97.9 98.6 Pulse 89 78 Resp 20 17 B/P (MAP) 136/60 (85) 146/73 (97) Pulse Ox 94 95 92 99 O2 Delivery Nasal Cannula Nasal Cannula Nasal Cannula Nasal Cannula O2 Flow Rate 3.0 3.0 05/09/18 05/09/18 05/09/18 05/09/18 09:31 11:00 11:15 12:00 Temp 97.7 97.7 Pulse 78 81 81 Resp 18 B/P (MAP) 146/73 117/53 (74) 117/53 Pulse Ox 93 94 O2 Delivery Nasal Cannula Nasal Cannula O2 Flow Rate 2.0 NUHA ALAS MD May 09, 2018 12:17
[2018-05-09 15:00] VITALS: BP 121/68
--- NOTE | 2018-05-09 16:05 | CARD ---
MR#: [id number] Date of Study: 05/09/2018 Ordering Physician: KAROL NELSON, Referring Physician: KAROL NELSON, Tech: Noy No FRANKLYN APPROVED REPORT EXAM: Two-dimensional and M-mode echocardiogram with Doppler and color Doppler. Other Information Quality : Good INDICATION Congestive Heart Failure 2D DIMENSIONS RVDd3.0 (2.9-3.5cm)Left Atrium(2D)4.0 (1.6-4.0cm) IVSd1.2 (0.7-1.1cm)Aortic Root(2D)3.3 (2.0-3.7cm) LVDd4.8 (3.9-5.9cm)LVOT Diameter2.0 (1.8-2.4cm) PWd0.8 (0.7-1.1cm)LVDs3.4 (2.5-4.0cm) FS (%) 28.0 %SV57.8 ml LVEF(%)54.1 (>50%) Aortic Valve AoV Peak Mars.166.2cm/sAoV VTI27.1cm AO Peak GR.11.1mmHgLVOT Peak Mars.109.1cm/s LVOT VTI 18.82cmAO Mean GR.6mmHg EVER (VMAX)2.65ps0MCM (VTI)2.28cm2 Mitral Valve MV E Veglwseb52.7cm/sMV DECEL [id number] MV A Kbkyyeaa740.7cm/sMV MTY25ds E/A Ratio0.7MVA (PHT)5.80cm2 TDI E/Lateral E'14.9E/Medial E'19.1 Tricuspid Valve TR P. Ysenhpyt478yp/sRAP [id number] TR Peak Gr.61gfQoZUWN03wdMw Pulmonary Vein S1 Donhxofz16.7cm/sD2 Skpolquy87.3cm/s LEFT VENTRICLE The left ventricle is normal size. There is mild concentric left ventricular hypertrophy. The left ve ntricular systolic function is normal and the ejection fraction is within normal range. The Ejection Fraction is 55-60%. There is normal LV segmental wall motion. Transmitral Doppler flow pattern is Gra de I-abnormal relaxation pattern. RIGHT VENTRICLE The right ventricle is normal size. The right ventricular systolic function is normal. ATRIA The left atrium is mildly dilated. The right atrium size is normal. The interatrial septum is intact with no evidence for an atrial septal defect or patent foramen ovale as noted on 2-D or Doppler imagi ng. AORTIC VALVE The aortic valve is normal in structure and function. Doppler and Color Flow revealed no significant aortic regurgitation. There is no significant aortic valvular stenosis. MITRAL VALVE The mitral valve is normal in structure and function. There is no evidence of mitral valve prolapse. There is no mitral valve stenosis. Doppler and Color-flow revealed trace mitral regurgitation. TRICUSPID VALVE The tricuspid valve is normal in structure and function. Doppler and Color Flow revealed trace to mil d tricuspid regurgitation. The PA pressure was estimated at 37 mmHg. There is no tricuspid valve sten osis. PULMONIC VALVE The pulmonic valve is not well visualized. Doppler and Color Flow revealed trace pulmonic valvular re gurgitation. There is no pulmonic valvular stenosis. GREAT VESSELS The aortic root is normal in size. The ascending aorta is normal in size. The IVC is normal in size a nd collapses >50% with inspiration. PERICARDIAL EFFUSION There is no evidence of significant pericardial effusion. Critical Notification Critical Value: No <Conclusion> The left ventricle is normal size. The left ventricular systolic function is normal and the ejection fraction is within normal range. The Ejection Fraction is 55-60%. There is mild concentric left ventricular hypertrophy. There is no significant aortic valvular stenosis. Doppler and Color Flow revealed no significant aortic regurgitation. Doppler and Color-flow revealed trace mitral regurgitation. Doppler and Color Flow revealed trace to mild tricuspid regurgitation. The PA pressure was estimated at 37 mmHg. Signed by : Nestor Ortiz MD Electronically Approved : 05/09/2018 16:05:31
[2018-05-09 19:00] VITALS: BP 135/70
[2018-05-09] MEDS: MONTELUKAST SODIUM 10 MG TABLET. PO SCH (20:38)
[2018-05-09] MEDS: LACTOBACILLUS RHAMNOSUS GG 1 CAPSULE. PO SCH (20:38)
[2018-05-09 22:59] VITALS: BP 151/87
[2018-05-09] MEDS: DOXYLAMINE SUCCINATE 25 MG TABLET PO SCH (23:03)
[2018-05-10 03:00] VITALS: BP 156/80
[2018-05-10 06:09] LABS: CHOLESTEROL/HDL RATIO 2.2
[2018-05-10 07:00] VITALS: BP 143/80
[2018-05-10] MEDS: BUDESONIDE 0.5 MG/2 ML NEBU. NEB SCH ×2 (07:13→19:14)
[2018-05-10] MEDS: IPRATRPIUM/ALBUTEROL 0.5/2.5MG 3 ML NEBU. NEB SCH ×4 (07:21→19:13)
[2018-05-10] MEDS: CARVEDILOL 12.5 MG TABLET. PO SCH ×2 (07:26→12:03)
[2018-05-10] MEDS: ASPIRIN ENTERIC COATED 81 MG TABLET.DR. PO SCH (08:15)
[2018-05-10] MEDS: LACTOBACILLUS RHAMNOSUS GG 1 CAPSULE. PO SCH ×2 (08:15→20:29)
[2018-05-10] MEDS: AZITHROMYCIN 500 MG in IV NORMAL SALINE 250ML 250 ML IV SCH (08:16)
[2018-05-10] MEDS: methylPREDNISolone SOD SUCC PF 40 MG/ML VIAL. IV SCH ×2 (08:16→20:30)
[2018-05-10] MEDS: NICOTINE 21MG PATCH. TD SCH (08:17)
[2018-05-10] MEDS: ENOXAPARIN 40 MG/0.4 ML SYRINGE. SQ SCH (08:17)
[2018-05-10 11:43] VITALS: BP 149/80
[2018-05-10] MEDS: LISINOPRIL 10 MG TABLET PO SCH (11:45)
--- NOTE | 2018-05-10 12:00 | PDOC ---
PULMONARY PROGRESS NOTES Subjective less soa Vitals Vital Signs Date Time Temp Pulse Resp B/P (MAP) Pulse Ox O2 Delivery O2 Flow Rate FiO2 05/10/18 11:45 76 149/80 05/10/18 11:43 98.5 18 93 Nasal Cannula 2.0 98.5 General: Alert, No acute distress Lungs: Wheezing (faint) Cardiovascular: S1 Abdomen: Soft Neuro Exam: Alert Extremities: No Edema Skin: Warm Labs Laboratory Tests Test 05/08/18 16:30 05/10/18 03:35 White Blood Count 4.2 x10^3/uL (4.0-11.0) Red Blood Count 4.81 x10^6/uL (3.50-5.40) Hemoglobin 15.3 g/dL (12.0-15.5) Hematocrit 45.0 % (36.0-47.0) Mean Corpuscular Volume 94 fL (79-100) Mean Corpuscular Hemoglobin 32 pg (25-35) Mean Corpuscular Hemoglobin Concent 34 g/dL (31-37) Red Cell Distribution Width 14.3 % (11.5-14.5) Platelet Count 206 x10^3/uL (140-400) Neutrophils (%) (Auto) 64 % (31-73) Lymphocytes (%) (Auto) 24 % (24-48) Monocytes (%) (Auto) 11 % (0-9) Eosinophils (%) (Auto) 1 % (0-3) Basophils (%) (Auto) 1 % (0-3) Neutrophils # (Auto) 2.7 x10^3uL (1.8-7.7) Lymphocytes # (Auto) 1.0 x10^3/uL (1.0-4.8) Monocytes # (Auto) 0.5 x10^3/uL (0.0-1.1) Eosinophils # (Auto) 0.0 x10^3/uL (0.0-0.7) Basophils # (Auto) 0.0 x10^3/uL (0.0-0.2) D-Dimer (Sujata) 0.89 ug/mlFEU (0.00-0.50) Sodium Level 136 mmol/L (136-145) Potassium Level 3.9 mmol/L (3.5-5.1) Chloride Level 96 mmol/L (98-107) Carbon Dioxide Level 34 mmol/L (21-32) Anion Gap 6 (6-14) Blood Urea Nitrogen 5 mg/dL (7-20) Creatinine 0.5 mg/dL (0.6-1.0) Estimated GFR (Cockcroft-Gault) 125.4 BUN/Creatinine Ratio 10 (6-20) Glucose Level 116 mg/dL (70-99) Lactic Acid Level 0.7 mmol/L (0.4-2.0) Calcium Level 8.5 mg/dL (8.5-10.1) Total Bilirubin 0.7 mg/dL (0.2-1.0) Aspartate Amino Transf (AST/SGOT) 35 U/L (15-37) Alanine Aminotransferase (ALT/SGPT) 52 U/L (14-59) Alkaline Phosphatase 78 U/L (46-116) ED-Cld-I-Type Natriuretic Peptide 1112 pg/mL (0-124) Total Protein 7.0 g/dL (6.4-8.2) Albumin 3.1 g/dL (3.4-5.0) Albumin/Globulin Ratio 0.8 (1.0-1.7) Influenza Type A Antigen Negative (NEGATIVE) Influenza Type B Antigen Negative (NEGATIVE) Triglycerides Level 49 mg/dL (0-150) Cholesterol Level 155 mg/dL (0-200) LDL Cholesterol, Calculated 76 mg/dL (0-100) VLDL Cholesterol, Calculated 10 mg/dL (0-40) Non-HDL Cholesterol Calculated 86 mg/dL (0-129) HDL Cholesterol 69 mg/dL (40-60) Cholesterol/HDL Ratio 2.2 Laboratory Tests Test 05/10/18 03:35 Triglycerides Level 49 mg/dL (0-150) Cholesterol Level 155 mg/dL (0-200) LDL Cholesterol, Calculated 76 mg/dL (0-100) VLDL Cholesterol, Calculated 10 mg/dL (0-40) Non-HDL Cholesterol Calculated 86 mg/dL (0-129) HDL Cholesterol 69 mg/dL (40-60) Cholesterol/HDL Ratio 2.2 Medications Active Scripts Medications Dose Route/Sig Max Daily Dose Days Date Category Nighttime Sleep-Aid (Doxylamine Succinate) 25 Mg Tablet 25 Mg PO QHS 05/08/18 Reported Riana-[place] Heartburn Tab Eff (Sodium Bicarbonate/Sodium Cit) 1 Each Tablet.eff 1 Each PO DAILY08 05/08/18 Reported Lisinopril 10 Mg Tablet 1 Tab PO DAILYWLUN 05/08/18 Reported Carvedilol 12.5 Mg Tablet 12.5 Mg PO BIDAC 05/08/18 Reported Proventil Hfa Inhaler (Albuterol Sulfate) 6.7 Gm Hfa.aer.ad 1 Puff IH PRN Q4HRS PRN 05/29/16 Rx Impression . 1. Dyspnea with acute hypoxic respiratory failure secondary to acute exacerbation of chronic obstructive pulmonary disease and recent acute bronchitis. 2. Chronic dyspnea with minimal activity, suspect secondary to severe chronic obstructive pulmonary disease with an unknown FEV1. 3. Abnormal D-dimer, this is a nonspecific finding. No suspicion for thromboembolic disease and as such, no further workup is required. 4. Acute bronchitis, likely viral. 5. No definite consolidation seen on the chest x-ray. 6. Cardiomyopathy with an ejection fraction of 35%. Plan . 1. Continue with present oxygen with gradual wean, keep saturation 92% and above. 2. Continue bronchodilators. 3. Smoking cessation counseling provided. 4. spirometry 5. Continue antibiotics. 6. IV steroid taper. 7. consider holding Coreg, still faint wheezing 8. keep her today and repeat 6-minute walk test in am. Pt prefers not to have oxygen GABINO BAILEY MD May 10, 2018 12:00
--- NOTE | 2018-05-10 12:01 | NUR ---
To hold pm dose of coreg per Dr. Canas to help patient wheezing. Patient return from pulmonary lab with oxygen saturation 89% on 0.5 liters per NC, iincreased to 1 liter and came up to 90%, at 2 liters patient 93%, oxygen left at 2 liters. Patient verb. understanding POC.
--- NOTE | 2018-05-10 13:21 | RESP ---
DATE OF SERVICE: 05/10/2018 SPIROMETRY The patient's FVC was 1.80, which is 53% predicted, FEV1 1.13, which is 43% predicted. The FEV1/FVC ratio was reduced. There was no response to bronchodilators. IMPRESSION: 1. Moderate to severe obstructive airway disease. 2. No response to bronchodilators. GABINO BAILEY MD DR: JOHN/zechariah JOB#: [id number] / [id number]
--- NOTE | 2018-05-10 13:22 | NUR ---
Patient oxygen saturation now 94% on 0.5 liters per NC. Patient requesting oxygen liter decrease as "makes me sweat". Continue cares and monitor.
[2018-05-10 15:00] VITALS: BP 135/79
--- NOTE | 2018-05-10 16:09 | PDOC ---
PROGRESS NOTES Chief Complaint Chief Complaint Shortness of breath - acute bronchitis with undiagnosed COPD . acute acute Hypoxia - on 02, wean as able - failed 6 min walk HTN - cont lisinopril. PRN labetalol ETOH abuse - no history of withdrawal. 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 Consult pulm emil, looks pretty good wean 02 she reports feeling much imrpoved already Vitals Vitals Vital Signs Date Time Temp Pulse Resp B/P (MAP) Pulse Ox O2 Delivery O2 Flow Rate FiO2 05/10/18 15:23 91 Nasal Cannula 1.0 05/10/18 15:00 81 16 135/79 (97) 05/10/18 11:43 98.5 98.5 Physical Exam General: Alert, Oriented X3, Cooperative, No acute distress Heart: Regular rate, Normal S1, Normal S2 Lungs: Wheezing (faint) Abdomen: Soft, No tenderness Extremities: No edema, Normal pulses Skin: No breakdown, No significant lesion Labs LABS Laboratory Tests Test 05/10/18 03:35 Triglycerides Level 49 mg/dL (0-150) Cholesterol Level 155 mg/dL (0-200) LDL Cholesterol, Calculated 76 mg/dL (0-100) VLDL Cholesterol, Calculated 10 mg/dL (0-40) Non-HDL Cholesterol Calculated 86 mg/dL (0-129) HDL Cholesterol 69 mg/dL (40-60) Cholesterol/HDL Ratio 2.2 Assessment and Plan Assessmemt and Plan Problems Medical Problems: (1) Acute bronchitis Status: Acute (2) COPD with acute exacerbation Status: Acute (3) Hypoxemia Status: Acute Comment Review of Relevant I have reviewed the following items erich (where applicable) has been applied. Labs Laboratory Tests Test 05/08/18 16:30 05/10/18 03:35 White Blood Count 4.2 x10^3/uL (4.0-11.0) Red Blood Count 4.81 x10^6/uL (3.50-5.40) Hemoglobin 15.3 g/dL (12.0-15.5) Hematocrit 45.0 % (36.0-47.0) Mean Corpuscular Volume 94 fL (79-100) Mean Corpuscular Hemoglobin 32 pg (25-35) Mean Corpuscular Hemoglobin Concent 34 g/dL (31-37) Red Cell Distribution Width 14.3 % (11.5-14.5) Platelet Count 206 x10^3/uL (140-400) Neutrophils (%) (Auto) 64 % (31-73) Lymphocytes (%) (Auto) 24 % (24-48) Monocytes (%) (Auto) 11 % (0-9) Eosinophils (%) (Auto) 1 % (0-3) Basophils (%) (Auto) 1 % (0-3) Neutrophils # (Auto) 2.7 x10^3uL (1.8-7.7) Lymphocytes # (Auto) 1.0 x10^3/uL (1.0-4.8) Monocytes # (Auto) 0.5 x10^3/uL (0.0-1.1) Eosinophils # (Auto) 0.0 x10^3/uL (0.0-0.7) Basophils # (Auto) 0.0 x10^3/uL (0.0-0.2) D-Dimer (Sujata) 0.89 ug/mlFEU (0.00-0.50) Sodium Level 136 mmol/L (136-145) Potassium Level 3.9 mmol/L (3.5-5.1) Chloride Level 96 mmol/L (98-107) Carbon Dioxide Level 34 mmol/L (21-32) Anion Gap 6 (6-14) Blood Urea Nitrogen 5 mg/dL (7-20) Creatinine 0.5 mg/dL (0.6-1.0) Estimated GFR (Cockcroft-Gault) 125.4 BUN/Creatinine Ratio 10 (6-20) Glucose Level 116 mg/dL (70-99) Lactic Acid Level 0.7 mmol/L (0.4-2.0) Calcium Level 8.5 mg/dL (8.5-10.1) Total Bilirubin 0.7 mg/dL (0.2-1.0) Aspartate Amino Transf (AST/SGOT) 35 U/L (15-37) Alanine Aminotransferase (ALT/SGPT) 52 U/L (14-59) Alkaline Phosphatase 78 U/L (46-116) ZK-Yby-V-Type Natriuretic Peptide 1112 pg/mL (0-124) Total Protein 7.0 g/dL (6.4-8.2) Albumin 3.1 g/dL (3.4-5.0) Albumin/Globulin Ratio 0.8 (1.0-1.7) Influenza Type A Antigen Negative (NEGATIVE) Influenza Type B Antigen Negative (NEGATIVE) Triglycerides Level 49 mg/dL (0-150) Cholesterol Level 155 mg/dL (0-200) LDL Cholesterol, Calculated 76 mg/dL (0-100) VLDL Cholesterol, Calculated 10 mg/dL (0-40) Non-HDL Cholesterol Calculated 86 mg/dL (0-129) HDL Cholesterol 69 mg/dL (40-60) Cholesterol/HDL Ratio 2.2 Laboratory Tests Test 05/10/18 03:35 Triglycerides Level 49 mg/dL (0-150) Cholesterol Level 155 mg/dL (0-200) LDL Cholesterol, Calculated 76 mg/dL (0-100) VLDL Cholesterol, Calculated 10 mg/dL (0-40) Non-HDL Cholesterol Calculated 86 mg/dL (0-129) HDL Cholesterol 69 mg/dL (40-60) Cholesterol/HDL Ratio 2.2 Microbiology 05/08/18 Blood Culture - Preliminary, Resulted NO GROWTH AFTER 1 DAY Medications Current Medications Albuterol/ Ipratropium (Duoneb) 3 ml 1X ONCE NEB Last administered on at 16:33; Start 05/08/18 at 16:15; Stop 05/08/18 at 16:16; Status DC Albuterol/ Ipratropium (Duoneb) 3 ml 1X ONCE NEB Last administered on at 16:40; Start 05/08/18 at 16:30; Stop 05/08/18 at 16:31; Status DC Methylprednisolone Sodium Succinate (SOLU-Medrol 125MG VIAL) 125 mg 1X ONCE IV Last administered on 05/08/18at 16:41; Start 05/08/18 at 16:30; Stop 05/08/18 at 16:31; Status DC Ceftriaxone Sodium (Rocephin) 1 gm 1X ONCE IVP Last administered on 05/08/18at 19:05; Start 05/08/18 at 19:00; Stop 05/08/18 at 19:01; Status DC Azithromycin (Zithromax) 500 mg 1X ONCE PO Last administered on 05/08/18at 19: 04; Start 05/08/18 at 19:00; Stop 05/08/18 at 19:01; Status DC Sodium Chloride 1,000 ml @ 100 mls/hr Q10H IV ; Start 05/08/18 at 18:51; Stop 05/09/18 at 18:50; Status DC Acetaminophen (Tylenol) 650 mg PRN Q4HRS PRN PO FEVER; Start 05/08/18 at 19:00 ; Stop 05/09/18 at 18:59; Status DC Albuterol/ Ipratropium (Duoneb) 3 ml RTQID NEB Last administered on 05/09/18at 19:34; Start 05/08/18 at 20:00; Stop 05/09/18 at 19:59; Status DC Nicotine (Nicoderm Cq 21mg) 1 patch DAILY TD Last administered on 05/10/18at 08: 17; Start 05/09/18 at 09:00 Albuterol Sulfate (Ventolin Neb Soln) 2.5 mg PRN Q4HRS PRN NEB asthma; Start at 22:30 Carvedilol (Coreg) 12.5 mg BIDAC PO Last administered on 05/10/18at 07:26; Start 05/09/18 at 07:30 Doxylamine Succinate (Unisom) 25 mg QHS PO Last administered on 05/09/18at 23:03 ; Start 05/08/18 at 22:30 Lisinopril (Prinivil) 10 mg DAILYWLUN PO Last administered on 05/10/18at 11:45; Start 05/09/18 at 12:00 Non-Formulary Medication (Sodium Bicarbonate/ Sodium Cit ([place]iana-[place] Heartburn Tab Eff)) 1 each DAILY08 PO ; Start 05/09/18 at 08:00; Stop 05/09/18 at 08:00; Status DC Methylprednisolone Sodium Succinate (SOLU-Medrol 40MG VIAL) 40 mg Q12HR IV Last administered on 05/10/18at 08:16; Start 05/09/18 at 09:00 Budesonide (Pulmicort) 0.5 mg RTBID NEB Last administered on 05/10/18at 07:13; Start 05/08/18 at 22:30 Montelukast Sodium (Singulair) 10 mg QHS PO Last administered on 05/09/18at 20: 38; Start 05/08/18 at 22:30 Influenza Virus Vaccine (Afluria Trivalent [id number] Syringe) 0.5 ml ONCE ONCE VAX IM Last administered on 05/09/18at 09:38; Start 05/09/18 at 09:00; Stop at 09:01; Status DC Azithromycin 500 mg/Sodium Chloride 250 ml @ 250 mls/hr Q24H IV Last administered on 05/10/18at 08:16; Start 05/09/18 at 09:00 Labetalol HCl (Normodyne Iv Push) 10 mg PRN Q2HR PRN IVP HYPERTENSION, SEE COMMENTS; Start 05/09/18 at 01:45 Enoxaparin Sodium (Lovenox 40mg Syringe) 40 mg Q24H SQ Last administered on at 08:17; Start 05/09/18 at 09:00 Furosemide (Lasix) 40 mg BID92 IVP Last administered on 05/09/18at 14:58; Start 05/09/18 at 09:30; Stop 05/09/18 at 16:56; Status DC Lactobacillus Rhamnosus (Culturelle) 1 cap BID PO Last administered on at 08:15; Start 05/09/18 at 21:00 Aspirin (Ecotrin) 81 mg DAILYWBKFT PO Last administered on 05/10/18at 08:15; Start 05/10/18 at 08:00 Albuterol/ Ipratropium (Duoneb) 3 ml RTQID NEB Last administered on 05/10/18at 15:23; Start 05/10/18 at 08:00 Active Scripts Active Proventil Hfa Inhaler (Albuterol Sulfate) 6.7 Gm Hfa.aer.ad 1 Puff IH PRN Q4HRS PRN Reported Nighttime Sleep-Aid (Doxylamine Succinate) 25 Mg Tablet 25 Mg PO QHS [place] Heartburn Tab Eff (Sodium Bicarbonate/Sodium Cit) 1 Each Tablet.eff 1 Each PO DAILY08 Lisinopril 10 Mg Tablet 1 Tab PO DAILYWLUN Carvedilol 12.5 Mg Tablet 12.5 Mg PO BIDAC Vitals/I & O Vital Sign - Last 24 Hours 05/09/18 05/09/18 05/09/18 05/09/18 19:00 19:35 19:35 20:00 Temp 98.0 98.0 Pulse 88 Resp 18 B/P (MAP) 135/70 (91) Pulse Ox 90 92 92 O2 Delivery Nasal Cannula Nasal Cannula Nasal Cannula Nasal Cannula O2 Flow Rate 0.5 1.0 1.0 0.5 05/09/18 05/10/18 05/10/18 05/10/18 22:59 03:00 07:00 07:17 Temp 97.9 98.5 98.7 97.9 98.5 98.7 Pulse 80 94 84 Resp 18 18 16 B/P (MAP) 151/87 (108) 156/80 (105) 143/80 (101) Pulse Ox 92 90 92 92 O2 Delivery Nasal Cannula Nasal Cannula Nasal Cannula Nasal Cannula O2 Flow Rate 0.5 0.5 0.5 1.0 05/10/18 05/10/18 05/10/18 05/10/18 07:26 08:00 10:51 11:43 Temp 98.5 98.5 Pulse 83 76 Resp 18 B/P (MAP) 143/80 149/80 (103) Pulse Ox 91 93 O2 Delivery Nasal Cannula Nasal Cannula Nasal Cannula O2 Flow Rate 0.5 1.0 2.0 05/10/18 05/10/18 05/10/18 05/10/18 11:45 13:21 15:00 15:23 Pulse 76 81 Resp 16 B/P (MAP) 149/80 135/79 (97) Pulse Ox 94 90 91 O2 Delivery Nasal Cannula Nasal Cannula Nasal Cannula O2 Flow Rate 0.5 2.0 1.0 Intake and Output 05/09/18 05/09/18 05/10/18 14:59 22:59 06:59 Intake Total 1420 ml 1040 ml Balance 1420 ml 1040 ml NUHA ALAS MD May 10, 2018 16:09
[2018-05-10 19:00] VITALS: BP 142/74
[2018-05-10] MEDS: MONTELUKAST SODIUM 10 MG TABLET. PO SCH (20:29)
[2018-05-10] MEDS: DOXYLAMINE SUCCINATE 25 MG TABLET PO SCH (22:02)
[2018-05-10 23:00] VITALS: BP 156/82
[2018-05-11 02:54] VITALS: BP 148/81
[2018-05-11 07:00] VITALS: BP 154/86
--- NOTE | 2018-05-11 07:52 | PDOC ---
PULMONARY PROGRESS NOTES Subjective sob cough better, no pain Vitals Vital Signs Date Time Temp Pulse Resp B/P (MAP) Pulse Ox O2 Delivery O2 Flow Rate FiO2 05/11/18 02:54 98.2 77 18 148/81 (103) 91 Nasal Cannula 0.5 98.2 ROS: No Nausea General: Alert, No acute distress HEENT: Other (nc at [facility] ) Lungs: Crackles Cardiovascular: S1, S2 Abdomen: Soft, Non-tender Neuro Exam: Alert, Oriented Extremities: No Edema Skin: Warm Labs Laboratory Tests Test 05/10/18 03:35 Triglycerides Level 49 mg/dL (0-150) Cholesterol Level 155 mg/dL (0-200) LDL Cholesterol, Calculated 76 mg/dL (0-100) VLDL Cholesterol, Calculated 10 mg/dL (0-40) Non-HDL Cholesterol Calculated 86 mg/dL (0-129) HDL Cholesterol 69 mg/dL (40-60) Cholesterol/HDL Ratio 2.2 Medications Active Scripts Medications Dose Route/Sig Max Daily Dose Days Date Category Nighttime Sleep-Aid (Doxylamine Succinate) 25 Mg Tablet 25 Mg PO QHS 05/08/18 Reported [place] Heartburn Tab Eff (Sodium Bicarbonate/Sodium Cit) 1 Each Tablet.eff 1 Each PO DAILY08 05/08/18 Reported Lisinopril 10 Mg Tablet 1 Tab PO DAILYWLUN 05/08/18 Reported Carvedilol 12.5 Mg Tablet 12.5 Mg PO BIDAC 05/08/18 Reported Proventil Hfa Inhaler (Albuterol Sulfate) 6.7 Gm Hfa.aer.ad 1 Puff IH PRN Q4HRS PRN 05/29/16 Rx Impression . 1. Dyspnea with acute hypoxic respiratory failure secondary to acute exacerbation of chronic obstructive pulmonary disease and recent acute bronchitis. 2. Chronic dyspnea with minimal activity, suspect secondary to severe chronic obstructive pulmonary disease with an unknown FEV1. 3. Abnormal D-dimer, this is a nonspecific finding. No suspicion for thromboembolic disease and as such, no further workup is required. 4. Acute bronchitis, likely viral. 5. No definite consolidation seen on the chest x-ray. 6. Cardiomyopathy with an ejection fraction of 35%. Plan . 1. 02 titration 2. Continue bronchodilators. 3. Smoking cessation counseling provided. 4. spirometry reviewed 5. Continue antibiotics. 6. change solumedrol to prednisone 40 mg daily w taper by 10 mg q 3d. 7. increase activity 8. 6-minute walk test bf dc. Pt prefers not to have oxygen discussed w rn pt SUMIT MONTGOMERY MD May 11, 2018 07:52
[2018-05-11] MEDS: IPRATRPIUM/ALBUTEROL 0.5/2.5MG 3 ML NEBU. NEB SCH ×4 (07:56→19:56)
[2018-05-11] MEDS: BUDESONIDE 0.5 MG/2 ML NEBU. NEB SCH ×2 (07:57→19:56)
[2018-05-11] MEDS: AZITHROMYCIN 500 MG in IV NORMAL SALINE 250ML 250 ML IV SCH (08:26)
[2018-05-11] MEDS: ASPIRIN ENTERIC COATED 81 MG TABLET.DR. PO SCH (08:26)
[2018-05-11] MEDS: CARVEDILOL 12.5 MG TABLET. PO SCH ×2 (08:27→16:46)
[2018-05-11] MEDS: LACTOBACILLUS RHAMNOSUS GG 1 CAPSULE. PO SCH ×2 (08:27→21:01)
[2018-05-11] MEDS: ENOXAPARIN 40 MG/0.4 ML SYRINGE. SQ SCH (08:28)
[2018-05-11] MEDS: predniSONE 20 MG TABLET PO SCH (08:30)
[2018-05-11] MEDS: NICOTINE 21MG PATCH. TD SCH (08:36)
[2018-05-11 11:00] VITALS: BP 134/72
[2018-05-11] MEDS: LISINOPRIL 10 MG TABLET PO SCH (12:12)
--- NOTE | 2018-05-11 13:00 | PDOC ---
PROGRESS NOTES Chief Complaint Chief Complaint Shortness of breath - acute bronchitis with undiagnosed COPD . acute acute Hypoxia - on 02, wean as able - failed 6 min walk HTN - cont lisinopril. PRN labetalol ETOH abuse - no history of withdrawal. 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 Consult pulm wean 02 she reports feeling much imrpoved already Vitals Vitals Vital Signs Date Time Temp Pulse Resp B/P (MAP) Pulse Ox O2 Delivery O2 Flow Rate FiO2 05/11/18 12:45 88 Room Air 05/11/18 12:12 74 134/72 05/11/18 11:00 97.7 20 1.0 97.7 Physical Exam General: Alert, Oriented X3, Cooperative, No acute distress Heart: Regular rate, Normal S1, Normal S2 Lungs: Crackles Abdomen: Soft, No tenderness Extremities: No edema, Normal pulses Skin: No breakdown, No significant lesion Review of Systems Review of Systems feels well, no e Assessment and Plan Assessmemt and Plan Problems Medical Problems: (1) Acute bronchitis Status: Acute (2) COPD with acute exacerbation Status: Acute (3) Hypoxemia Status: Acute Comment Review of Relevant I have reviewed the following items erich (where applicable) has been applied. Labs Laboratory Tests Test 05/10/18 03:35 Triglycerides Level 49 mg/dL (0-150) Cholesterol Level 155 mg/dL (0-200) LDL Cholesterol, Calculated 76 mg/dL (0-100) VLDL Cholesterol, Calculated 10 mg/dL (0-40) Non-HDL Cholesterol Calculated 86 mg/dL (0-129) HDL Cholesterol 69 mg/dL (40-60) Cholesterol/HDL Ratio 2.2 Microbiology 05/08/18 Blood Culture - Preliminary, Resulted NO GROWTH AFTER 2 DAYS Medications Current Medications Albuterol/ Ipratropium (Duoneb) 3 ml 1X ONCE NEB Last administered on at 16:33; Start 05/08/18 at 16:15; Stop 05/08/18 at 16:16; Status DC Albuterol/ Ipratropium (Duoneb) 3 ml 1X ONCE NEB Last administered on at 16:40; Start 05/08/18 at 16:30; Stop 05/08/18 at 16:31; Status DC Methylprednisolone Sodium Succinate (SOLU-Medrol 125MG VIAL) 125 mg 1X ONCE IV Last administered on 05/08/18at 16:41; Start 05/08/18 at 16:30; Stop 05/08/18 at 16:31; Status DC Ceftriaxone Sodium (Rocephin) 1 gm 1X ONCE IVP Last administered on 05/08/18at 19:05; Start 05/08/18 at 19:00; Stop 05/08/18 at 19:01; Status DC Azithromycin (Zithromax) 500 mg 1X ONCE PO Last administered on 05/08/18at 19: 04; Start 05/08/18 at 19:00; Stop 05/08/18 at 19:01; Status DC Sodium Chloride 1,000 ml @ 100 mls/hr Q10H IV ; Start 05/08/18 at 18:51; Stop 05/09/18 at 18:50; Status DC Acetaminophen (Tylenol) 650 mg PRN Q4HRS PRN PO FEVER; Start 05/08/18 at 19:00 ; Stop 05/09/18 at 18:59; Status DC Albuterol/ Ipratropium (Duoneb) 3 ml RTQID NEB Last administered on 05/09/18at 19:34; Start 05/08/18 at 20:00; Stop 05/09/18 at 19:59; Status DC Nicotine (Nicoderm Cq 21mg) 1 patch DAILY TD Last administered on 05/11/18at 08: 36; Start 05/09/18 at 09:00 Albuterol Sulfate (Ventolin Neb Soln) 2.5 mg PRN Q4HRS PRN NEB asthma; Start at 22:30 Carvedilol (Coreg) 12.5 mg BIDAC PO Last administered on 05/11/18at 08:27; Start 05/09/18 at 07:30 Doxylamine Succinate (Unisom) 25 mg QHS PO Last administered on 05/10/18at 22:02 ; Start 05/08/18 at 22:30 Lisinopril (Prinivil) 10 mg DAILYWLUN PO Last administered on 05/11/18at 12:12; Start 05/09/18 at 12:00 Non-Formulary Medication (Sodium Bicarbonate/ Sodium Cit ([place]iana-[place] Heartburn Tab Eff)) 1 each DAILY08 PO ; Start 05/09/18 at 08:00; Stop 05/09/18 at 08:00; Status DC Methylprednisolone Sodium Succinate (SOLU-Medrol 40MG VIAL) 40 mg Q12HR IV Last administered on 05/10/18 20:30; Start 05/09/18 at 09:00; Stop 05/11/18 at 07:53; Status DC Budesonide (Pulmicort) 0.5 mg RTBID NEB Last administered on 05/11/18 07:57; Start 05/08/18 at 22:30 Montelukast Sodium (Singulair) 10 mg QHS PO Last administered on 05/10/18 20: 29; Start 05/08/18 at 22:30 Influenza Virus Vaccine (Afluria Trivalent [id number] Syringe) 0.5 ml ONCE ONCE VAX IM Last administered on 05/09/18 09:38; Start 05/09/18 at 09:00; Stop at 09:01; Status DC Azithromycin 500 mg/Sodium Chloride 250 ml @ 250 mls/hr Q24H IV Last administered on 05/11/18 08:26; Start 05/09/18 at 09:00 Labetalol HCl (Normodyne Iv Push) 10 mg PRN Q2HR PRN IVP HYPERTENSION, SEE COMMENTS; Start 05/09/18 at 01:45 Enoxaparin Sodium (Lovenox 40mg Syringe) 40 mg Q24H SQ Last administered on 08:28; Start 05/09/18 at 09:00 Furosemide (Lasix) 40 mg BID92 IVP Last administered on 05/09/18 14:58; Start 05/09/18 at 09:30; Stop 05/09/18 at 16:56; Status DC Lactobacillus Rhamnosus (Culturelle) 1 cap BID PO Last administered on 08:27; Start 05/09/18 at 21:00 Aspirin (Ecotrin) 81 mg DAILYWBKFT PO Last administered on 05/11/18 08:26; Start 05/10/18 at 08:00 Albuterol/ Ipratropium (Duoneb) 3 ml RTQID NEB Last administered on 2/23/19at 12:47; Start 05/10/18 at 08:00 Prednisone (Prednisone) 40 mg DAILY PO Last administered on 05/11/18at 08:30; Start 05/11/18 at 09:00 Active Scripts Active Proventil Hfa Inhaler (Albuterol Sulfate) 6.7 Gm Hfa.aer.ad 1 Puff IH PRN Q4HRS PRN Reported Nighttime Sleep-Aid (Doxylamine Succinate) 25 Mg Tablet 25 Mg PO QHS [place] Heartburn Tab Eff (Sodium Bicarbonate/Sodium Cit) 1 Each Tablet.eff 1 Each PO DAILY08 Lisinopril 10 Mg Tablet 1 Tab PO DAILYWLUN Carvedilol 12.5 Mg Tablet 12.5 Mg PO BIDAC Vitals/I & O Vital Sign - Last 24 Hours 05/10/18 05/10/18 05/10/18 05/10/18 13:21 15:00 15:23 19:00 Temp 97.9 97.9 Pulse 81 84 Resp 16 18 B/P (MAP) 135/79 (97) 142/74 (96) Pulse Ox 94 90 91 91 O2 Delivery Nasal Cannula Nasal Cannula Nasal Cannula Nasal Cannula O2 Flow Rate 0.5 2.0 1.0 0.5 05/10/18 05/10/18 05/10/18 05/10/18 19:15 19:16 19:19 23:00 Temp 98.1 98.1 Pulse 78 Resp 18 B/P (MAP) 156/82 (106) Pulse Ox 96 96 90 O2 Delivery Nasal Cannula Nasal Cannula Nasal Cannula Nasal Cannula O2 Flow Rate 1.0 1.0 0.5 0.5 05/11/18 05/11/18 05/11/18 05/11/18 02:54 07:00 07:26 08:27 Temp 98.2 97.9 98.2 97.9 Pulse 77 77 77 Resp 18 18 B/P (MAP) 148/81 (103) 154/86 (108) 154/86 Pulse Ox 91 93 93 O2 Delivery Nasal Cannula Nasal Cannula Nasal Cannula O2 Flow Rate 0.5 1.0 1.0 05/11/18 05/11/18 05/11/18 05/11/18 08:30 11:00 12:12 12:45 Temp 97.7 97.7 Pulse 74 74 Resp 20 B/P (MAP) 134/72 (92) 134/72 Pulse Ox 95 88 O2 Delivery Nasal Cannula Nasal Cannula Room Air O2 Flow Rate 1.0 1.0 Intake and Output 05/10/18 05/10/18 05/11/18 15:00 23:00 07:00 Intake Total 730 ml 860 ml 480 ml Balance 730 ml 860 ml 480 ml NUHA ALAS MD May 11, 2018 13:00
[2018-05-11 15:00] VITALS: BP 141/85
[2018-05-11 19:00] VITALS: BP 135/70
[2018-05-11] MEDS: MONTELUKAST SODIUM 10 MG TABLET. PO SCH (21:01)
[2018-05-11] MEDS: DOXYLAMINE SUCCINATE 25 MG TABLET PO SCH (22:03)
[2018-05-11 23:00] VITALS: BP 169/91
[2018-05-12 03:00] VITALS: BP 124/70
[2018-05-12 07:00] VITALS: BP 152/83
[2018-05-12] MEDS: BUDESONIDE 0.5 MG/2 ML NEBU. NEB SCH (07:48)
[2018-05-12] MEDS: IPRATRPIUM/ALBUTEROL 0.5/2.5MG 3 ML NEBU. NEB SCH ×2 (07:48→11:31)
--- NOTE | 2018-05-12 07:55 | PDOC ---
PULMONARY PROGRESS NOTES Subjective sob better, has occ cough, no pain Vitals Vital Signs Date Time Temp Pulse Resp B/P (MAP) Pulse Ox O2 Delivery O2 Flow Rate FiO2 05/12/18 03:00 97.9 81 18 124/70 (88) 90 Room Air 97.9 05/11/18 11:00 1.0 ROS: No Nausea General: Alert, No acute distress [facility]: [facility] Lungs: Crackles Cardiovascular: S1, S2 Abdomen: Soft, Non-tender Neuro Exam: Alert, Oriented Extremities: No Edema Skin: Warm Medications Active Scripts Medications Dose Route/Sig Max Daily Dose Days Date Category Nighttime Sleep-Aid (Doxylamine Succinate) 25 Mg Tablet 25 Mg PO QHS 05/08/18 Reported [place] Heartburn Tab Eff (Sodium Bicarbonate/Sodium Cit) 1 Each Tablet.eff 1 Each PO DAILY08 05/08/18 Reported Lisinopril 10 Mg Tablet 1 Tab PO DAILYWLUN 05/08/18 Reported Carvedilol 12.5 Mg Tablet 12.5 Mg PO BIDAC 05/08/18 Reported Proventil Hfa Inhaler (Albuterol Sulfate) 6.7 Gm Hfa.aer.ad 1 Puff IH PRN Q4HRS PRN 05/29/16 Rx Impression . 1. Dyspnea with acute hypoxic respiratory failure secondary to acute exacerbation of chronic obstructive pulmonary disease and recent acute bronchitis. 2. Chronic dyspnea with minimal activity, suspect secondary to severe chronic obstructive pulmonary disease with an unknown FEV1. 3. Abnormal D-dimer, this is a nonspecific finding. No suspicion for thromboembolic disease and as such, no further workup is required. 4. Acute bronchitis, likely viral. 5. No definite consolidation seen on the chest x-ray. 6. Cardiomyopathy with an ejection fraction of 35%. Plan . 1. 02 titration, IS 2. Continue bronchodilators. 3. Smoking cessation counseling provided. 4. spirometry reviewed 5. Continue antibiotics. 6. prednisone 40 mg daily w taper by 10 mg q 3d. 7. increase activity 8. 6-minute walk test at time of discharge. Pt prefers not to have oxygen but she may need 02 discussed w rn pt SUMIT MONTGOMERY MD May 12, 2018 07:54
[2018-05-12] MEDS: NICOTINE 21MG PATCH. TD SCH (08:29)
[2018-05-12] MEDS: predniSONE 20 MG TABLET PO SCH (08:30)
[2018-05-12] MEDS: ASPIRIN ENTERIC COATED 81 MG TABLET.DR. PO SCH (08:30)
[2018-05-12] MEDS: CARVEDILOL 12.5 MG TABLET. PO SCH (08:30)
[2018-05-12] MEDS: LACTOBACILLUS RHAMNOSUS GG 1 CAPSULE. PO SCH (08:30)
[2018-05-12] MEDS: ENOXAPARIN 40 MG/0.4 ML SYRINGE. SQ SCH (08:31)
[2018-05-12] MEDS ORDERED: BUDE10.22 IH (08:56)
[2018-05-12] MEDS ORDERED: IPRA4AER IH (08:56)
[2018-05-12] MEDS ORDERED: PRED-220 PO (08:56)
[2018-05-12] MEDS ORDERED: AZIT250T6 PO (08:56)
[2018-05-12] MEDS ORDERED: AZITHROMYCIN 250 MG TABLET. PO SCH (09:00)
[2018-05-12 11:00] VITALS: BP 128/73
--- NOTE | 2018-05-12 11:29 | PDOC3 ---
Discharge Summary Visit Information Date of Admission: May 08, 2018 Date of Discharge: May 12, 2018 Admitting Diagnosis: hypoxia Final Diagnosis Shortness of breath - acute bronchitis with undiagnosed COPD . acute acute Hypoxia - on 02, wean as able - failed 6 min walk HTN - cont lisinopril. PRN labetalol ETOH abuse - no history of withdrawal. 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 Cooley is a 62 old female, admti with acute dyspnea, cough, wheeze, was hypoxic, no hx, tobacco and EtOH use at home, cessation discussed multiple times. new dx, COPD, need pulm f/u for full PFT, cont nebs, steroids, azithromycin daily x3, Discharge Information Condition at Discharge: Improved Follow Up: Weeks Disposition/Orders: D/C to Home Scheduled Azithromycin (Azithromycin Tablet) 250 Mg Tablet, 1 PKG PO UD for bronchitis, #3 Prescribed by: NUHA ALAS on 05/12/18 0856 Budesonide/Formoterol Fumarate (Symbicort 80-4.5 Mcg Inhaler) 10.2 Gm Hfa.aer.ad , 1 PUFF IH BID for lung disease, #1 Prescribed by: NUHA ALAS on 05/12/18 0856 Carvedilol (Carvedilol) 12.5 Mg Tablet, 12.5 MG PO BIDAC for heart, (Reported) Entered as Reported by: SHE CAMACHO on 05/08/182038 Last Taken: 12.5mg on 05/08/18 1600 Last Action: Continued on 05/08/182224 by KAROL NELSON MD Doxylamine Succinate (Nighttime Sleep-Aid) 25 Mg Tablet, 25 MG PO QHS for sleep, (Reported) Entered as Reported by: SHE CAMACHO on 05/08/182038 Last Taken: 25mg on 05/07/18 2100 Last Action: Continued on 05/08/182224 by KAROL NELSON MD Ipratropium/Albuterol Sulfate (Combivent Respimat Inhal) 4 Gm Aer.w.adap, 1 INH IH BID for lung function, #1 Prescribed by: NUHA ALAS on 05/12/18 0856 Lisinopril (Lisinopril) 10 Mg Tablet, 1 TAB PO DAILYWLUN for heart, #30 Ref 5 ( Reported) Entered as Reported by: SHE CAMACHO on 05/08/182038 Last Taken: Unknown Dose on 05/08/18 1200 Last Action: Continued on 2224 by KAROL NELSON MD Prednisone (Prednisone ) 10 Mg Tablet, 10 MG PO UD for bronchitis, #20 Ref 0 take 4 tablets by mouth daily for 2 days, then take 3 tablets by mouth daily for 2 days, then take 2 tablets by mouth daily for 2 days, then take 1 tablets by mouth daily for 2 days, then stop. Prescribed by: NUHA ALAS on 05/12/18 0856 Sodium Bicarbonate/Sodium Cit (Riana-[place] Heartburn Tab Eff) 1 Each Tablet.eff , 1 EACH PO DAILY08 for heartburn, (Reported) Entered as Reported by: SHE CAMACHO on 05/08/182038 Last Taken: 1 tab on 05/08/18 0800 Last Action: Converted on 05/08/182224 by KAROL NELSON MD Scheduled PRN Albuterol Sulfate (Proventil Hfa Inhaler) 6.7 Gm Hfa.aer.ad, 1 PUFF IH PRN Q4HRS PRN for asthma, #1 NS Prescribed by: AGATHA COON D.O. on 05/29/16 1703 Last Action: Continued on 05/08/182224 by KAROL NELSON MD Patient Instructions Patient Instructions > 30 min face to face, plan discussed NUHA ALAS MD May 12, 2018 11:29
[2018-05-12 11:44] VITALS: BP 128/73
[2018-05-12] MEDS: LISINOPRIL 10 MG TABLET PO SCH (11:44)
--- NOTE | 2018-05-12 14:07 | NUR ---
Discharge Note: LUANNE SUÁREZ Discharge instructions and discharge home medications reviewed with Patient and a copy given. All questions have been answered and understanding verbalized. The following instructions and handouts were given: discharge instructions, new prescriptions, education and follow up recommendations. Discontinued lines and drains: Peripheral IV discontinued intact. Patient discharged to Home or Self Care with Spouse via Wheelchair off unit by RN.
== END 2018-05-12 14:09 | disposition home or self-care (01) | DRG 189 ==
LOC: ER 15:44 → 5 NORTH 18:50
PROVIDERS: ADMIT Internal Medicine; ATTEND Internal Medicine
DX: J96.21 Acute and chronic respiratory failure with hypoxia (principal); J44.1 Chronic obstructive pulmonary disease with (acute) exacerbation; I50.42 Chronic combined systolic (congestive) and diastolic (congestive) heart failure; I42.9 Cardiomyopathy, unspecified; J44.0 Chronic obstructive pulmonary disease with (acute) lower respiratory infection; I11.0 Hypertensive heart disease with heart failure; G47.00 Insomnia, unspecified; F17.210 Nicotine dependence, cigarettes, uncomplicated; F10.10 Alcohol abuse, uncomplicated; J20.9 Acute bronchitis, unspecified; K21.9 Gastro-esophageal reflux disease without esophagitis; M19.90 Unspecified osteoarthritis, unspecified site; Z88.6 Allergy status to analgesic agent; Z82.49 Family history of ischemic heart disease and other diseases of the circulatory system
CPT/HCPCS: 36415; 71046; 80053; 80061; 83605; 83880; 85025; 85379; 87040; 87804; 90471; 90756; 93005; 93306; 94060; 94618; 94640; 94760; 96374; 96375; 99406; J0456; J0696; J1650; J1940; J2920; J2930; J7050; J7512; J7620; J7626; Q0144; 99285-25; J7030; Q2035